=== PATIENT | female | born 1995 | race Hispanic/Latino ===

== ENCOUNTER → 2017-12-31 14:08 | Outpatient (CLI) | payer OTHER, MEDICAID, SELFPAY ==
[2017-12-31 15:04] LABS: Add Manual Diff / Slide Review NO; Basophils Percent Auto 0.3 % (0-2); Hematocrit 35.8 % (36-46); Hemoglobin 12.8 g/dL (12.0-16.0); Lymphocytes Percent Auto 17.2 % (25-40); Mean Corpuscular HGB Conc 35.6 % (30-36); Mean Corpuscular Hemoglobin 29.2 PG (26-34); Mean Corpuscular Volume 81.9 fL (80-100); Monocytes Percent Auto 5.1 % (3-14); Neutrophils Absolute Auto 7900 /uL (3000-5900); Neutrophils Percent Auto 76.4 % (50-75); Platelet Count 219 X10^3/uL (150-400); Red Blood Cell Count 4.37 X10^6/uL (4.0-5.2); Red Cell Distribution Width 13.7 % (11.6-14.8); White Blood Cell Count 10.4 X10^3/uL (4.5-11.0)
[2017-12-31 16:49] LABS: Hepatitis B Surface Antigen NEGATIVE s/c (NEGATIVE); Rubella Antibody IgG 10.5 IU/mL (>15)
[2017-12-31 17:07] LABS: Hep C Virus Ab w/Reflex Quant NEGATIVE s/c (NEGATIVE)
[2017-12-31 20:17] LABS: HIV 1 and 2 Antibody NEGATIVE (NEGATIVE)
[2018-01-04 14:03] LABS: HSV 2 IGG AB 9.14 index (< 0.90)
[2018-01-07 09:50] LABS: Rapid Plasma Reagin NON-REACTIVE
== END ==
PROVIDERS: Family Medicine; Visit Provider Obstetrics & Gynecology
DX: Z34.91 Encounter for supervision of normal pregnancy, unspecified, first trimester (principal)
CPT/HCPCS: 36415; 80055; 86695; 86696; 86703; 86787; 86803; 86850; 86900; 86901; 87086

== ENCOUNTER → 2018-03-07 11:51 | Outpatient (CLI) | payer OTHER, MEDICAID, SELFPAY ==
[2018-03-15 09:47] LABS: AFP, Serum 53.1 ng/mL; Calc Gestational Age 18.6; Cigarette Smoker N; Donated Egg NOT GIVEN; Donor Egg Age NOT GIVEN; Estriol, Free 1.26 ng/mL; Inhibin A, Dimeric 119 pg/mL; Maternal Ethnicity HISPANIC; Maternal Weight 202 lbs; Number of Fetuses 1; Previous Pregnancy Down Syndro NOT GIVEN; hCG, MoM 1.31; hCG, Serum 25.5 IU/mL
== END ==
PROVIDERS: PCP Family Medicine; Visit Provider Family Medicine
DX: Z34.92 Encounter for supervision of normal pregnancy, unspecified, second trimester (principal)
CPT/HCPCS: 36415; 82105; 82677; 84702; 86336

== ENCOUNTER → 2018-03-17 09:55 | Outpatient (CLI) | payer OTHER, MEDICAID, SELFPAY ==
--- NOTE | 2018-03-17 09:56 | DI.US.S_ITS ---
PROCEDURE: US OB >= 14 WEEKS FETUS INDICATIONS: ANATOMY OUTSIDE/PRIOR DATING DATA: Last menstrual period (LMP): Unknown. LMP-based estimated date of delivery (LADONNA): N./A.. First dating scan (date and location): 03/17/18. Estimated date of delivery (LADONNA) from first dating scan: 07/24/18. TECHNIQUE: Real-time scanning was performed of the fetus, with image documentation and biometric measurements. Endovaginal scanning: No COMPARISON: None. FINDINGS: General: A single living intrauterine gestation is present. Presentation: Vertex. Placenta: Placental position is posterior fundal, without previa. Amniotic fluid index: 13.1 cm, normal range is 5-24 cm. heart rate: 131 beats per minute. Maternal cervical canal: 4.0 cm long. Normal lower limit is 2.5 cm. biometrics: Biparietal diameter: 21 weeks 1 day Head circumference: 21 weeks 1 day Abdominal circumference: 21 weeks 1 day Femur length: 23 weeks Estimated gestational age from initial scan: not applicable. Composite gestational age from present scan: 21 weeks 4 days Measurement variability for biometric dating: +/- 7 days from 14 weeks to 15 weeks 6 days gestation, +/- 10 days from 16 weeks to 21 weeks 6 days gestation, +/- 2 weeks from 22 weeks to 27 weeks 6 days gestation, +/- 3 weeks for 28 weeks gestation or later. weight reference: 4500 g or EFW >90/95% is considered macrosomia or large for gestational age. EFW <10% is small for gestational age. EFW 5% or less is considered intra-uterine growth restriction. Anatomic survey: Neuro: Ventricles are non-dilated at less than 10 mm. Cisterna magna is normal at 3-11 mm. Cerebellum is normal in size and morphology. Nuchal skin fold: Normal at less than 6 mm between 14-21 weeks gestational age. Face: Suboptimally visualized. Spine: No evidence for spina bifida. Heart: Suboptimally visualized. Diaphragm: Diaphragm is intact. Stomach: Left-sided stomach is present. Kidneys: No hydronephrosis. Normal is less than 5 mm in 2nd trimester, less than 7 mm in 3rd trimester. Cord: 3-vessel cord has orthotopic insertion. Bladder: Normal in size. Extremities: All 4 extremities identified. IMPRESSION: 1. Single living IUP with mean composite age of 21 weeks 4 days. 2. face and heart are not well-visualized otherwise normal anatomy. Followup recommended. Dictated by: Moi KATZ Interpreted: Cezar Snowden MD on 03/17/2018 at 14:33 Approved by: Cezar Snowden M.D. on 03/17/2018 at 15:20
== END ==
PROVIDERS: PCP Family Medicine; Visit Provider Family Medicine
DX: Z34.02 Encounter for supervision of normal first pregnancy, second trimester (principal); Z36.89 Encounter for other specified antenatal screening; Z3A.21 21 weeks gestation of pregnancy
CPT/HCPCS: 76811

== ENCOUNTER → 2018-04-19 12:24 | Outpatient (CLI) | payer OTHER, MEDICAID, SELFPAY ==
--- NOTE | 2018-04-19 12:25 | DI.US.S_ITS ---
PROCEDURE: US OB FOLLOW UP INDICATIONS: Follow up anatomy scan from 03/17/18 OUTSIDE/PRIOR DATING DATA: Last menstrual period (LMP): Unknown. LMP-based estimated date of delivery (LADONNA): N./A.. First dating scan (date and location): 03/17/18. Estimated date of delivery (LADONNA) from first dating scan: 07/24/18.. TECHNIQUE: Real-time scanning was performed of the fetus, with image documentation. Endovaginal scanning: No COMPARISON: [facility], OB >= 14 WEEKS FETUS, 03/17/2018, 10:06. FINDINGS: A single living intrauterine gestation is present. Presentation: Vertex Placenta: Placental position is posterior, without previa. Amniotic fluid index: 16.2 cm, normal range is 5-24 cm. heart rate: 150 beats per minute. Maternal cervical canal: 4.4 cm long. Estimated gestational age from initial scan: 26 weeks 2 days Normal appearance of the face, 4 chamber heart and cardiac outflow tracts.. IMPRESSION: Normal face, 4 chamber heart and cardiac outflow tracts. Dictated by: Moi Mar [facility] Interpreted: Lorenzo Erazo MD on 04/19/2018 at 14:44 Approved by: Lorenzo Erazo M.D. on 04/19/2018 at 15:34
== END ==
PROVIDERS: PCP Family Medicine; Visit Provider Family Medicine
DX: Z36.89 Encounter for other specified antenatal screening (principal); Z3A.26 26 weeks gestation of pregnancy
CPT/HCPCS: 76816

== ENCOUNTER → 2018-05-27 12:22 | Outpatient (CLI) | payer OTHER, MEDICAID, SELFPAY ==
[2018-05-27 13:53] LABS: Add Manual Diff / Slide Review NO; Basophils Percent Auto 0.2 % (0-2); Eosinophils Percent Auto 0.7 % (2-4); Hematocrit 33.6 % (36-46); Hemoglobin 11.7 g/dL (12.0-16.0); Lymphocytes Percent Auto 13.8 % (25-40); Mean Corpuscular HGB Conc 34.9 % (30-36); Mean Corpuscular Hemoglobin 29.3 PG (26-34); Mean Corpuscular Volume 83.8 fL (80-100); Monocytes Percent Auto 3.2 % (3-14); Neutrophils Absolute Auto 8600 /uL (1500-7000); Neutrophils Percent Auto 82.1 % (50-75); Platelet Count 192 X10^3/uL (150-400); Red Blood Cell Count 4.01 X10^6/uL (4.0-5.2); Red Cell Distribution Width 14.1 % (11.6-14.8); White Blood Cell Count 10.5 X10^3/uL (4.5-11.0)
[2018-05-27 14:13] LABS: GTT (PREG) 1 Hour PP 50gm Dose 145 mg/dL (76-139)
== END ==
PROVIDERS: PCP Family Medicine; Visit Provider Family Medicine
DX: Z3A.27 27 weeks gestation of pregnancy (principal)
CPT/HCPCS: 36415; 82950; 85025

== ENCOUNTER → 2018-05-30 11:36 | Outpatient (CLI) | payer OTHER, MEDICAID, SELFPAY | PROVIDERS: PCP Family Medicine; Visit Provider Family Medicine | DX: O99.810 Abnormal glucose complicating pregnancy (principal); Z34.03 Encounter for supervision of normal first pregnancy, third trimester; O26.843 Uterine size-date discrepancy, third trimester ==

== ENCOUNTER → 2018-06-06 09:05 | Outpatient (CLI) | payer OTHER, MEDICAID, SELFPAY ==
[2018-06-06 12:30] LABS: Glucose Tol Interp,Gestational INTERPRETATION
[2018-06-06 13:45] LABS: Glucose 3 Hour Gest 158 mg/dL (76-140)
[2018-06-06 13:45] LABS: Glucose 2 Hour Gest 111 mg/dL (76-155)
[2018-06-06 14:37] LABS: Glucose 1 Hour Gest 171 mg/dL (76-180)
[2018-06-08 09:44] LABS: Glucose Fasting Gestational 84 mg/dL (76-95)
== END ==
PROVIDERS: PCP Family Medicine; Visit Provider Family Medicine
DX: O99.810 Abnormal glucose complicating pregnancy (principal); Z34.03 Encounter for supervision of normal first pregnancy, third trimester
CPT/HCPCS: 36415; 82951; 82952

== ENCOUNTER → 2018-06-22 09:07 | Outpatient (CLI) | payer OTHER, MEDICAID, SELFPAY ==
--- NOTE | 2018-06-22 09:11 | DI.US.S_ITS ---
PROCEDURE: US OB LIMITED INDICATIONS: size > dates, growth scan OUTSIDE/PRIOR DATING DATA: Last menstrual period (LMP): Unknown. LMP-based estimated date of delivery (LADONNA): N./A.. First dating scan (date and location): 03/17/18. Estimated date of delivery (LADONNA) from first dating scan: 07/24/18. TECHNIQUE: Real-time scanning was performed of the fetus, with image documentation and biometric measurements. Endovaginal scanning: No COMPARISON: [facility], OB FOLLOW UP, 04/19/2018, 13:11. FINDINGS: General: A single living intrauterine gestation is present. Presentation: Vertex. Placenta: Placental position is posterior, without previa. Amniotic fluid index: 18.2 cm, normal range is 5-24 cm. heart rate: 132 beats per minute. Maternal cervical canal: 4.1 cm long. Normal lower limit is 2.5 cm. biometrics: Biparietal diameter: 34 weeks 4 days Head circumference: 36 weeks 2 days Abdominal circumference: 36 weeks 4 days Femur length: 36 weeks Estimated gestational age from initial scan: 35 weeks 3 days Composite gestational age from present scan: 35 weeks 6 days Estimated weight and percentile: 2870 g; 70 percentile Measurement variability for biometric dating: +/- 7 days from 14 weeks to 15 weeks 6 days gestation, +/- 10 days from 16 weeks to 21 weeks 6 days gestation, +/- 2 weeks from 22 weeks to 27 weeks 6 days gestation, +/- 3 weeks for 28 weeks gestation or later. weight reference: 4500 g or EFW >90/95% is considered macrosomia or large for gestational age. EFW <10% is small for gestational age. EFW 5% or less is considered intra-uterine growth restriction. Other: Not applicable. IMPRESSION: Single living IUP redemonstrated and interval growth is normal. Dictated by: Moi Mar [facility] Interpreted: Micah Richmond MD on 06/22/2018 at 10:21 Approved by: Micah Richmond M.D. on 06/22/2018 at 11:26
== END ==
PROVIDERS: PCP Family Medicine; Visit Provider Family Medicine
DX: O26.843 Uterine size-date discrepancy, third trimester (principal); Z3A.35 35 weeks gestation of pregnancy
CPT/HCPCS: 76815

== ENCOUNTER → 2018-07-11 11:37 | Outpatient (CLI) | payer OTHER, MEDICAID, SELFPAY ==
[2018-07-11 12:45] LABS: Add Manual Diff / Slide Review NO; Basophils Absolute Auto 0 /uL (0-100); Basophils Percent Auto 0.3 % (0-2); Eosinophils Absolute Auto 100 /uL (0-450); Eosinophils Percent Auto 0.8 % (2-4); Hematocrit 33.8 % (36-46); Hemoglobin 11.5 g/dL (12.0-16.0); Lymphocytes Absolute Auto 1400 /uL (1100-4500); Lymphocytes Percent Auto 14.3 % (25-40); Mean Corpuscular HGB Conc 34.1 % (30-36); Mean Corpuscular Hemoglobin 28.5 PG (26-34); Mean Corpuscular Volume 83.6 fL (80-100); Monocytes Absolute Auto 400 /uL (0-900); Monocytes Percent Auto 4.1 % (3-14); Neutrophils Absolute Auto 7900 /uL (1500-7000); Neutrophils Percent Auto 80.5 % (50-75); Platelet Count 211 X10^3/uL (150-400); Red Blood Cell Count 4.05 X10^6/uL (4.0-5.2); Red Cell Distribution Width 14.1 % (11.6-14.8); White Blood Cell Count 9.8 X10^3/uL (4.5-11.0)
[2018-07-11 13:18] LABS: Appearance Urine UA CLEAR; Bilirubin Urine UA NEGATIVE (NEGATIVE); Color Urine UA YELLOW; Glucose Urine UA TRACE g/dL (Negative); Ketones Urine UA NEGATIVE (NEGATIVE); Leukocyte Esterase Urine UA 1+ (NEGATIVE); Nitrite Urine UA NEGATIVE (Negative); Occult Blood Urine UA TRACE-INTACT (Negative); Protein Urine UA NEGATIVE (Negative); pH Urine UA 6.5 (4.5-8.0)
[2018-07-11 13:30] LABS: Alanine Aminotransferase 30 IU/L (9-52); Albumin 3.1 g/dL (3.5-5.0); Albumin Globulin Ratio 1.1 (1.0-2.8); Alkaline Phosphatase 227 U/L (38-126); Aspartate Aminotransferase 17 IU/L (14-36); Bilirubin Total 0.3 mg/dL (0.2-1.3); Blood Urea Nitrogen 6 mg/dL (7-17); Calcium 8.7 mg/dL (8.4-10.2); Carbon Dioxide 21 mmol/L (22-32); Chloride 106 mmol/L (98-107); Estimated Glomerular Filt Rate > 60.0 mL/min (>60); Globulin 2.9 g/dL (1.7-4.1); Glucose 131 mg/dL (70-100); HEMOLYSIS < 15 (0-50); Sodium 136 mmol/L (137-145)
[2018-07-11 13:37] LABS: Amorphous Sediment Urine 1+; Bacteria Urine Occasional (0-1); RBC Urine 0-1/HPF (0-5/HPF); Squamous Epithelial Cell Urine 0-1 /HPF; WBC Urine 1-5/HPF (0-5/HPF)
[2018-07-11 13:38] LABS: Culture Indicated Urine Specimen Cultured; Mucus Urine 1+ (Negative)
[2018-07-11 16:56] LABS: Creatinine Urine Random 96.9 mg/dL; Protein (Total) Urine Random 6 mg/dL (0-12); Protein Creatinine Ratio Urine 0.06 GRAM/24H
[2018-07-12 09:40] LABS: Strep Grp B PCR NEG for Grp B Strep
== END ==
PROVIDERS: PCP Family Medicine; Visit Provider Family Medicine
DX: O16.3 Unspecified maternal hypertension, third trimester (principal); Z3A.36 36 weeks gestation of pregnancy
CPT/HCPCS: 36415; 80053; 81001; 82570; 84156; 85025; 87077; 87086; 87653

== ENCOUNTER 2018-07-14 22:03 | Outpatient (CLI) | payer OTHER, MEDICAID, SELFPAY ==
[2018-07-14 23:12] LABS: Add Manual Diff / Slide Review NO; Basophils Absolute Auto 0 /uL (0-100); Basophils Percent Auto 0.4 % (0-2); Eosinophils Absolute Auto 100 /uL (0-450); Eosinophils Percent Auto 0.8 % (2-4); Hematocrit 30.9 % (36-46); Hemoglobin 10.8 g/dL (12.0-16.0); Lymphocytes Absolute Auto 1700 /uL (1100-4500); Lymphocytes Percent Auto 17.2 % (25-40); Mean Corpuscular HGB Conc 34.9 % (30-36); Mean Corpuscular Hemoglobin 28.5 PG (26-34); Mean Corpuscular Volume 81.8 fL (80-100); Monocytes Absolute Auto 600 /uL (0-900); Monocytes Percent Auto 6.3 % (3-14); Neutrophils Absolute Auto 7600 /uL (1500-7000); Neutrophils Percent Auto 75.3 % (50-75); Platelet Count 193 X10^3/uL (150-400); Red Blood Cell Count 3.78 X10^6/uL (4.0-5.2); Red Cell Distribution Width 14.3 % (11.6-14.8); White Blood Cell Count 10.1 X10^3/uL (4.5-11.0)
[2018-07-14 23:13] LABS: Aspartate Aminotransferase 15 IU/L (14-36); BUN Creatinine Ratio 16.7 (6-22); Blood Urea Nitrogen 10 mg/dL (7-17); Estimated Glomerular Filt Rate > 60.0 mL/min (>60); Uric Acid 4.1 mg/dL (2.5-6.2)
[2018-07-14 23:55] LABS: Appearance Urine UA CLEAR; Bilirubin Urine UA NEGATIVE (NEGATIVE); Color Urine UA YELLOW; Glucose Urine UA NEGATIVE (Negative); Ketones Urine UA NEGATIVE (NEGATIVE); Leukocyte Esterase Urine UA 1+ (NEGATIVE); Nitrite Urine UA NEGATIVE (Negative); Occult Blood Urine UA TRACE-LYSED (Negative); Protein Urine UA 1+ (Negative); Urobilinogen Urine UA 0.2 E.U./dL (0.2)
[2018-07-15 00:11] LABS: Bacteria Urine Few (2-10); Culture Indicated Urine Specimen Cultured; RBC Urine 1-5/HPF (0-5/HPF); Squamous Epithelial Cell Urine 1-5 /HPF; WBC Urine 1-5/HPF (0-5/HPF)
--- NOTE | 2018-07-15 14:11 | PM.OBTRLD ---
Visit Information Visit Information Date of evaluation: 07/15/18 Primary OB Provider: Tania García On-call OB Provider: Anitra Schneider Reason for Evaluation: Yes other Comments/Additional reasons for admission: Patient complains of high blood pressure on home monitor Exam Vital Signs (past 8 hours): Initial blood pressure was 189/100. Very shortly after her blood pressure was 118/87 followed by 121/70. Objective Labs Result Diagrams: 07/14/18 22:48 07/14/18 22:48 Labs: Laboratory Results - last 24 hr 07/14/18 07/14/18 07/14/18 22:30 22:48 22:48 WBC 10.1 RBC 3.78 L Hgb 10.8 L Hct 30.9 L MCV 81.8 MCH 28.5 MCHC 34.9 RDW 14.3 Plt Count 193 Neut % (Auto) 75.3 H Lymph % (Auto) 17.2 L [place] % (Auto) 6.3 Eos % (Auto) 0.8 L Baso % (Auto) 0.4 Neut # (Auto) 7600 H Lymph # (Auto) 1700 [place] # (Auto) 600 Eos # (Auto) 100 Baso # (Auto) 0 BUN 10 Creatinine 0.60 Estimated GFR > 60.0 BUN/Creatinine Ratio 16.7 Uric Acid 4.1 AST 15 Urine Color Yellow Urine Appearance Clear Urine pH 7.0 Ur Specific [place] 1.020 Urine Protein 1+ H Urine Glucose (UA) Negative Urine Ketones Negative Urine Occult Blood Trace-lysed Urine Nitrate Negative Urine Bilirubin Negative Urine Urobilinogen 0.2 Ur Leukocyte Esterase 1+ H Urine RBC 1-5/hpf Urine WBC 1-5/hpf Ur Squamous Epith Cells 1-5 /hpf Urine Bacteria Few (2-10) H Ur Culture Indicated? Specimen cultured Evaluation Evaluation Baseline heart rate: 145 Variability: Moderate (11-25) monitor accelerations: Present monitor decelerations: Absent Contraction Frequency (minutes): 0 Laboratory results: Laboratory Tests 07/14/18 07/14/18 07/14/18 22:30 22:48 22:48 WBC 10.1 RBC 3.78 L Hgb 10.8 L Hct 30.9 L MCV 81.8 MCH 28.5 MCHC 34.9 RDW 14.3 Plt Count 193 Neut % (Auto) 75.3 H Lymph % (Auto) 17.2 L [place] % (Auto) 6.3 Eos % (Auto) 0.8 L Baso % (Auto) 0.4 Neut # (Auto) 7600 H Lymph # (Auto) 1700 [place] # (Auto) 600 Eos # (Auto) 100 Baso # (Auto) 0 BUN 10 Creatinine 0.60 Estimated GFR > 60.0 BUN/Creatinine Ratio 16.7 Uric Acid 4.1 AST 15 Urine Color Yellow Urine Appearance Clear Urine pH 7.0 Ur Specific [place] 1.020 Urine Protein 1+ H Urine Glucose (UA) Negative Urine Ketones Negative Urine Occult Blood Trace-lysed Urine Nitrate Negative Urine Bilirubin Negative Urine Urobilinogen 0.2 Ur Leukocyte Esterase 1+ H Urine RBC 1-5/hpf Urine WBC 1-5/hpf Ur Squamous Epith Cells 1-5 /hpf Urine Bacteria Few (2-10) H Ur Culture Indicated? Specimen cultured Diagnosis, Plan/Disposition Final Diagnosis (1) Hypertension affecting in third trimester: Current Visit: No Status: Acute Plan/Disposition Plan: Patient with hypertension that resolved quickly with rest. PIH labs were normal. Patient was discharged home on rest. She is to follow up on her regularly scheduled OB appointment but return if she develops any symptoms of preeclampsia. She will continue to monitor blood pressures at home.
== END 2018-07-15 00:11 | disposition home or self-care (01) ==
LOC: OB 07-15 14:13
PROVIDERS: PCP Family Medicine; Visit Provider Specialist
DX: Z34.03 Encounter for supervision of normal first pregnancy, third trimester (principal); Z3A.37 37 weeks gestation of pregnancy; R03.0 Elevated blood-pressure reading, without diagnosis of hypertension
CPT/HCPCS: 36415; 59025; 59050; 81001; 84450; 84550; 85025; 87086; G0378; G0379

== ENCOUNTER 2018-07-18 19:04 | Inpatient (IN) | payer OTHER, MEDICAID, SELFPAY ==
[2018-07-18 19:45] LABS: Add Manual Diff / Slide Review NO; Basophils Absolute Auto 100 /uL (0-100); Basophils Percent Auto 0.6 % (0-2); Eosinophils Absolute Auto 100 /uL (0-450); Eosinophils Percent Auto 0.9 % (2-4); Hematocrit 35.1 % (36-46); Hemoglobin 11.7 g/dL (12.0-16.0); Lymphocytes Absolute Auto 1600 /uL (1100-4500); Mean Corpuscular HGB Conc 33.4 % (30-36); Mean Corpuscular Hemoglobin 27.7 PG (26-34); Mean Corpuscular Volume 82.8 fL (80-100); Monocytes Absolute Auto 300 /uL (0-900); Neutrophils Absolute Auto 9000 /uL (1500-7000); Neutrophils Percent Auto 81.5 % (50-75); Platelet Count 224 X10^3/uL (150-400); Red Blood Cell Count 4.24 X10^6/uL (4.0-5.2); Red Cell Distribution Width 14.4 % (11.6-14.8); White Blood Cell Count 11.1 X10^3/uL (4.5-11.0)
[2018-07-18 19:52] LABS: Alanine Aminotransferase 28 IU/L (9-52); Albumin 3.7 g/dL (3.5-5.0); Albumin Globulin Ratio 1.1 (1.0-2.8); Alkaline Phosphatase 237 U/L (38-126); Aspartate Aminotransferase 26 IU/L (14-36); Bilirubin Total 0.6 mg/dL (0.2-1.3); Blood Urea Nitrogen 9 mg/dL (7-17); Calcium 9.1 mg/dL (8.4-10.2); Carbon Dioxide 23 mmol/L (22-32); Chloride 106 mmol/L (98-107); Estimated Glomerular Filt Rate > 60.0 mL/min (>60); Globulin 3.5 g/dL (1.7-4.1); Glucose 142 mg/dL (70-100); HEMOLYSIS 32 (0-50); Potassium 4.4 mmol/L (3.4-5.1); Sodium 138 mmol/L (137-145); Total Protein 7.2 g/dL (6.3-8.2)
[2018-07-18] MEDS: miSOPROStol 25 MCG TABLET VAG (20:02)
[2018-07-18 20:31] VITALS: BP 134/78
[2018-07-18 22:38] LABS: Creatinine Urine Random 94.8 mg/dL; Protein (Total) Urine Random 74 mg/dL (0-12); Protein Creatinine Ratio Urine 0.78 GRAM/24H
[2018-07-19] MEDS: miSOPROStol 25 MCG TABLET VAG (00:30)
[2018-07-19] MEDS: OXYTOCIN PREMIX 30 UNIT/500 ML PLAST..BAG IV (08:10)
[2018-07-19] MEDS: LACTATED RINGERS 1,000 ML 100 ML IV ×2 (08:10→23:52)
--- NOTE | 2018-07-19 08:16 | P.HPOB_ITS ---
OB HPI Date/Time Date of admission: 07/18/18 Date Patient Seen: 07/19/18 Time Patient Seen: 08:00 History of Present Condition Chief complaint: : 1 Para: 0 Estimated Date of Delivery: 08/04/18 Estimated Gestational Age (weeks): 37w5d Narrative: Lizbet Chakraborty is a 23 year old at 37w5d who presented for IOL due to gestational hypertension. Pt denies any headaches, vision changes, RUQ pain, acute worsening of swelling. She has been overall feeling well. She has been checking her BPs regularly at home, and they have been consistently elevated > 140 systolic for the past week. The pt denies any vaginal bleeding or LOF. She has been feeling her baby move regularly. Indications Indication for induction OB: other (gestational hypertension now pre-eclampsia) History of Present care: limited care, initiated at week # (10) and number of visits (9) Dating criteria: based on 1st trimester US only Ultrasounds: normal 1st trimester US and normal mid trimester US Obstetrical complications: gestational hypertension Medical complications: none Preadmission Labs Blood type: O (+) positive -: Antibody screen: negative, GBS status: negative, HBsAG: negative, HIV: negative, HSV 1: positive, HSV 2: positive and RPR/VDLR: negative -: Rubella: immune and Varicella: immune HCT: 33.6 HCAB: negative 1 hr GTT: 145 3 hr GTT: 1 hr (171), 2 hr (111) and 3 hr (158) Evaluation Evaluation Baseline heart rate: 140 Variability: Moderate (11-25) monitor accelerations: Present monitor decelerations: Absent Contraction Frequency (minutes): 5 Uterine Contraction Intensity: Mild Category of Tracing: I Cervical dilation (cm): 2 Cervical effacement (%): 60 station: -2 Laboratory results: Laboratory Tests 07/18/18 07/18/18 07/18/18 19:30 19:30 19:30 WBC 11.1 H RBC 4.24 Hgb 11.7 L Hct 35.1 L MCV 82.8 MCH 27.7 MCHC 33.4 RDW 14.4 Plt Count 224 Neut % (Auto) 81.5 H Lymph % (Auto) 14.0 L [place] % (Auto) 3.0 Eos % (Auto) 0.9 L Baso % (Auto) 0.6 Neut # (Auto) 9000 H Lymph # (Auto) 1600 [place] # (Auto) 300 Eos # (Auto) 100 Baso # (Auto) 100 Sodium 138 Potassium 4.4 Chloride 106 Carbon Dioxide 23 BUN 9 Creatinine 0.50 L Estimated GFR > 60.0 BUN/Creatinine Ratio 18.0 Glucose 142 H Calcium 9.1 Total Bilirubin 0.6 AST 26 ALT 28 Alkaline Phosphatase 237 H Total Protein 7.2 Albumin 3.7 Globulin 3.5 Albumin/Globulin Ratio 1.1 U Random Total Protein Urine Creatinine Protein/Creatinin Ratio Blood Type O Positive Antibody Screen Negative 07/18/18 21:15 WBC RBC Hgb Hct MCV MCH MCHC RDW Plt Count Neut % (Auto) Lymph % (Auto) [place] % (Auto) Eos % (Auto) Baso % (Auto) Neut # (Auto) Lymph # (Auto) [place] # (Auto) Eos # (Auto) Baso # (Auto) Sodium Potassium Chloride Carbon Dioxide BUN Creatinine Estimated GFR BUN/Creatinine Ratio Glucose Calcium Total Bilirubin AST ALT Alkaline Phosphatase Total Protein Albumin Globulin Albumin/Globulin Ratio U Random Total Protein 74 H Urine Creatinine 94.8 Protein/Creatinin Ratio 0.78 Blood Type Antibody Screen [facility] Social History Smoking Status: Never smoker Social History Smoking Status: Never smoker Meds Home Medications Medication Instructions Recorded Confirmed Type No Known Home Medications 07/14/18 07/14/18 History Allergies Allergy/AdvReac Type Severity Reaction Status Date / Time No Known Drug Allergies Allergy Verified 07/14/18 22:20 Exam Narrative Exam Narrative: Gen: NAD, laying comfortably in bed, appears well CV: RRR, no murmurs Resp: clear to auscultation bilaterally Abd: gravid, soft, nondistended Ext: trace edema bilaterally Objective Labs Result Diagrams: 07/18/18 19:30 07/18/18 19:30 Labs: Laboratory Results - last 24 hr 07/18/18 07/18/18 07/18/18 19:30 19:30 19:30 WBC 11.1 H RBC 4.24 Hgb 11.7 L Hct 35.1 L MCV 82.8 MCH 27.7 MCHC 33.4 RDW 14.4 Plt Count 224 Neut % (Auto) 81.5 H Lymph % (Auto) 14.0 L [place] % (Auto) 3.0 Eos % (Auto) 0.9 L Baso % (Auto) 0.6 Neut # (Auto) 9000 H Lymph # (Auto) 1600 [place] # (Auto) 300 Eos # (Auto) 100 Baso # (Auto) 100 Sodium 138 Potassium 4.4 Chloride 106 Carbon Dioxide 23 BUN 9 Creatinine 0.50 L Estimated GFR > 60.0 BUN/Creatinine Ratio 18.0 Glucose 142 H Calcium 9.1 Total Bilirubin 0.6 AST 26 ALT 28 Alkaline Phosphatase 237 H Total Protein 7.2 Albumin 3.7 Globulin 3.5 Albumin/Globulin Ratio 1.1 U Random Total Protein Urine Creatinine Protein/Creatinin Ratio Blood Type O Positive Antibody Screen Negative 07/18/18 21:15 WBC RBC Hgb Hct MCV MCH MCHC RDW Plt Count Neut % (Auto) Lymph % (Auto) [place] % (Auto) Eos % (Auto) Baso % (Auto) Neut # (Auto) Lymph # (Auto) [place] # (Auto) Eos # (Auto) Baso # (Auto) Sodium Potassium Chloride Carbon Dioxide BUN Creatinine Estimated GFR BUN/Creatinine Ratio Glucose Calcium Total Bilirubin AST ALT Alkaline Phosphatase Total Protein Albumin Globulin Albumin/Globulin Ratio U Random Total Protein 74 H Urine Creatinine 94.8 Protein/Creatinin Ratio 0.78 Blood Type Antibody Screen Assessment and Plan (1) 37 weeks gestation of : Current visit: Yes Status: Acute (2) Hypertension affecting in third trimester: Current visit: Yes Status: Acute (3) Preeclampsia: Current visit: Yes Status: Acute Plan: Plan: 23yo at 37w4d here for IOL due to gestational hypertension, with lab work at admission showing elevated Pr/Cr, therefore pt meeting criteria for pre- eclampsia without severe features. No evidence of HELLP at this time. GBS negative, Rh positive. - Expectant management, anticipate - Received 2 doses cytotec overnight, now with mild contractions. [place] score 7. Will start pitocin and titrate as tolerated. - Monitor BPs closely, if elevating to severe range will start Magnesium and give IV antihypertensives - GBS negative, no prophylaxis indicated - FHT reassuring - Epidural for pain control if desired, pt would like to try and use natural methods for as long as possible. Encouraged ambulation.
--- NOTE | 2018-07-19 13:04 | PM.OBPNLAB ---
Date/Time Date Patient Seen: 07/19/18 Time Patient Seen: 13:00 Pain Control Pain control: tolerating well Pelvic Exam Dilation (cm): 3 Effacement (%): 60 station: -2 Amniotic membrane status: Ruptured Comments: After informed consent, AROM performed with production of clear fluid. Contractions Monitor mode: External Pitocin rate (mU/min): 12 Contraction frequency (min): 2 Contraction pattern: Regular Contraction intensity: Strong/Firm Status status: Category l Heart Rate Baseline: 140 Monitor Accelerations: Present Monitor Decelerations: Absent Monitor Variability: Moderate Assessment and Plan Comments: 23yo at 37w5d here for IOL due to gestational hypertension, with lab work at admission showing elevated Pr/Cr, therefore pt meeting criteria for pre-eclampsia without severe features. No evidence of HELLP at this time. GBS negative, Rh positive. AROM performed with clear fluid, contractions now much more painful. BP now elevated to severe range, pt remains asymptomatic. Pt is very uncomfortable with regular contractions, likely contributing to BP elevation. - Expectant management, anticipate - Received 2 doses cytotec overnight. Continue pitocin, titrate as tolerated - 10mg IV Labetalol now - Repeat BP in 10 minutes, if remains elevated 20mg IV Labetalol - Epidural for pain control now. If BPs remain elevated after epidural, will initiate MgSO4 - GBS negative, no prophylaxis indicated - FHT reassuring
[2018-07-19] MEDS: LABETALOL 20 MG/4 ML SYRINGE 10 MG IV (13:06)
--- NOTE | 2018-07-19 17:26 | PM.OBPNLAB ---
Date/Time Date Patient Seen: 07/19/18 Time Patient Seen: 17:00 Pain Control Pain control: epidural Pelvic Exam Dilation (cm): 4 Effacement (%): 90 station: -1 Amniotic membrane status: Ruptured Contractions Monitor mode: External Pitocin rate (mU/min): 16 Contraction frequency (min): 2 Contraction pattern: Regular Contraction intensity: Strong/Firm Intrauterine tone measurement: 170 Status status: Category l Heart Rate Baseline: 140 Monitor Accelerations: Present Monitor Decelerations: Absent Monitor Variability: Moderate Assessment and Plan Comments: 23yo at 37w5d here for IOL due to gestational hypertension, with lab work at admission showing elevated Pr/Cr, therefore pt meeting criteria for pre-eclampsia without severe features. No evidence of HELLP at admission. GBS negative, Rh positive. AROM performed with clear fluid. BP previously to severe range requiring IV Labetalol 10mg x1, now in acceptable range after epidural in place. IUPC placed due to limited cervical change and inability to titrate up pitocin further with contraction pattern. - Expectant management, anticipate - Received 2 doses cytotec overnight. Continue pitocin, titrate as tolerated to at least 200MVUs - Epidural for pain control - Continue to monitor BP closely - GBS negative, no prophylaxis indicated - FHT reassuring
[2018-07-20 02:27] VITALS: TEMP 38.2
[2018-07-20] MEDS: ACETAMINOPHEN 325 MG TABLET 650 MG PO (02:27)
[2018-07-20] MEDS: AMPICILLIN 2,000 MG in SODIUM CHLORIDE 0.9% 100 ML 200 ML IV ×4 (02:41→20:46)
[2018-07-20] MEDS: SODIUM CHLORIDE 0.9% IV (03:15)
[2018-07-20] MEDS: GENTAMICIN IV (03:15)
--- NOTE | 2018-07-20 07:46 | PM.OBPNLAB ---
Date/Time Date Patient Seen: 07/20/18 Time Patient Seen: 07:15 Pain Control Pain control: epidural Pelvic Exam Dilation (cm): 10 Effacement (%): 100 station: +1 Amniotic membrane status: Ruptured Contractions Monitor mode: External Pitocin rate (mU/min): 9 Contraction frequency (min): 5 Contraction pattern: Regular Contraction intensity: Strong/Firm Status status: Category l Heart Rate Baseline: 155 Monitor Accelerations: Present Monitor Decelerations: Absent Monitor Variability: Moderate Assessment and Plan Comments: 23yo at 37w5d here for IOL due to gestational hypertension, with lab work at admission showing elevated Pr/Cr, therefore pt meeting criteria for pre-eclampsia without severe features. No evidence of HELLP at admission. GBS negative, Rh positive. AROM performed with clear fluid. BP previously to severe range requiring IV Labetalol 10mg x1, now remains in acceptable range after epidural in place. IUPC placed due to limited cervical change and inability to titrate up pitocin further with contraction pattern. Pt slowly progressed overnight. Did develop tachycardia and maternal fever, with antibiotics started for chorioamnionitis. Now with complete cervical dilation. - Expectant management, anticipate - Received 2 doses cytotec initial night. Continue pitocin, titrate as tolerated. IUPC stopped functioning properly and was removed. - Epidural for pain control - Continue to monitor BP closely - Ampicillin and Gentamicin for chorio - FHT reassuring
--- NOTE | 2018-07-20 14:02 | PATH_ITS ---
[facility] Accession Number: [id number] . 01 Material submitted: . PLACENTA AFTER DELIVERY . 02 Diagnosis: Placenta After Delivery: Placenta parenchyma. Weight 493 grams. Chorionic villi consistent with mature placenta. Moderate inter- and intravillous fibrin is present. No villitis identified. . Umbilical cord Length 67.2 cm. Inserted 5.5 cm from the placental disc margin. Three vessels present. Funisitis present. . Membranes Ruptured 8.5 cm from the placental disc margin. Chorioamnionitis present. MRV/07/22/2018 . 02 Electronically signed: . Gabrielle Estes MD, Pathologist NPI- [id number] . 01 Gross description: . Received in formalin, labeled placenta, is an intact placenta, which includes the placental disc (493 grams, 20.3 x 14.5 x 3.3 cm), umbilical cord (length-67.2 cm, diameter-up to 1.5 x 1.1 cm), and membranes. The membranes are ruptured at 8.5 cm from the edge of the placenta and are semi-translucent. The umbilical cord is attached 5.5 cm from the edge of the placenta and contains three vessels. The surface is smooth and shiny with no evidence of meconium identified. The maternal surface is red-brown with normal cotyledon formation. The placental body is spongy with no nodules, masses or lesions identified. Section code: (A1) edge of placenta with membranes; (A2) umbilical cord, sales promotion representative serial section; (A3-A4, A5-A6) placental body, two bisected full thickness sections. ([id number]) /[facility] . 02 Pathologist provided ICD-10: O41.1039 . 02 CPT . 160326 Performed at: 01 [facility] [address] [place] [address], [place], [place] [id number] MD Braden James MD Phone: [phone] Performed at: [facility] [address] [place], [place] [id number] MD Argentina Miller MD Phone: [phone]
--- NOTE | 2018-07-20 14:04 | PM.OBPRVD ---
Delivery date: 07/20/18 Intrapartal events: Prolonged 2nd Stage > 2.5 hours, Mild Preeclampsia, Extended Tachycardia and Chorioamnionitis Cervical ripening method: per misoprostal protocol Induction method: per pitocin protocol Delivery augmentation: rupture of membranes Delivery monitor: external FHT Route of delivery: Indication for instrumentation: nonreassuring FHR tracing ( tachycardia) Episiotomy description: None L&D Laceration Description: Vaginal - 1st Degree Estimated blood loss (mL): 250 Anesthesia type: Epidural Narrative: PROCEDURE: at 37w4d presented for IOL for gestational hypertension and was admitted to Labor and Delivery. Admission labs showed and elevated Pr/Cr, and the pt was diagnosed with pre-eclampsia. The pt received cytotec for initial induction, followed by pitocin. AROM was performed at 11:35am on 07/19/18. She received an epidural for pain control. The patient progressed through the 1st stage over 4.5 hours. tachycardia developed, in addition to maternal fever, and the pt was started on Ampicillin and Gentamicin for chorioamnionitis. She received a total of 2 doses of each prior to delivery. The patient progressed through the 2nd stage over 3hrs 44min. FHT were category II throughout the second stage due to tachycardia. Once the pt was , there were recurrent variable decelerations. Due to for at least 3 minutes with little additional maternal effort for delivery due to exhaustion, in addition to acutely worsening tachycardia to the 210s, a vacuum was applied. Maternal pelvis was noted to be adequate. Vertex presentation in the JAQUELINE position and +4 station. Moulding present, Caput present Vacuum cup of the Kiwi OmniCup applied to the flexion point without difficulty and during contractions, pressure applied between 400-600 mmHg as indicated in the green zone of the pressure gauge. Infant delivered after 1 pulls with 0 pop-offs over an intact perineum. Total duration of application of the vacuum was <1 minutes. Due to significant labial and vaginal tissue, when the pts head was fully delivered it was still not possible to visualize the mouth and nose. A loose nuchal cord x1 was then reduced at the perineum. The anterior shoulder then did not easily deliver, and the pt was determined to have an anterior shoulder dystocia. Jones and suprabupic pressure were attempted without any release of the anterior shoulder. An attempt was made to deliver the posterior arm, however due to the pts deep vaginal tissue, it could not be delivered. Woodscrew and Rodriguez were then completed, with the anterior shoulder then delivering and the rest of the body without difficulty. Delivery time 11:07am. The cord was promptly clamped and cut, and the baby taken to the warmer for resuscitation. APGARs 0/0/1. Small vaginal and perineal lacerations were noted that did not require repair. Shoulder dystocia present: yes Mode of delivery : spontaneous operative vaginal delivery Time head delivered: 11:05 Time rest of body delivered: 11:07 No fundal pressure applied Standard traction on vertex applied. Maneuvers performed: Jones, Suprapubic pressure, Delivery of posterior arm, Woodscrew, Rodriguez Episiotomy: None Lacerations: Vaginal 1st degree not requiring repair Cord gases sent: None - called in on-call OB provider due to delivering provider assisting with resuscitation. Unable to collect cord gases at the time of their arrival. Status of before leaving delivery room: scores: 1 min - 0 5 min - 0 10 min - 1 Moving all extremities: Prior to transfer, yes PREPROCEDURE DIAGNOSIS: Intrauterine at 37w4d Pre-eclampsia without severe features Chorioamnionitis GBS negative RH positive POSTPROCEDURE DIAGNOSIS: Intrauterine at 37w6d, delivered Same as preprocedure Shoulder dystocia Terminal meconium PROCEDURE: Vacuum-assisted vaginal delivery ROM APPEARANCE: Clear BABY A DELIVERY TIME: 11:07 BABY A SEX: Female BABY A WEIGHT: Approximately 3kg BABY A NUCHAL CORD: x1 reduced at the perineum BABY A CORD GASES OBTAINED: No - provider involved in resuscitation and unable to obtain cord gases PLACENTA DELIVERY TIME: 11:15 PLACENTA APPEARANCE: Intact [place] Baby 1: Infant gender: Female Presentation: vertex position: Right Occiput Anterior Placenta delivery description: Spontaneous cord vessel description: 3 Vessels score (1 min): 0 score (5 min): 0 score (10 min): 1 Narrative: Baby required resuscitation with PPV, chest compressions, intubation, and epinephrine. Was ultimately transferred to [facility] for additional care. At the time of transfer, was breathing spontaneously with ET tube in place and HR in the 150s. Plan for aftercare: Continue to monitor BPs closely Continue Ampicillin and Gentamicin until 24hrs without fever support with pumping Normal care
[2018-07-20 14:09] VITALS: BP 160/93; PULSE 90
[2018-07-20] MEDS: LABETALOL 20 MG/4 ML SYRINGE 10 MG IV (14:09)
[2018-07-20 14:31] LABS: Hematocrit 34.3 % (36-46); Hemoglobin 11.7 g/dL (12.0-16.0); Mean Corpuscular Hemoglobin 27.9 PG (26-34); Platelet Count 195 X10^3/uL (150-400); Red Blood Cell Count 4.18 X10^6/uL (4.0-5.2); Red Cell Distribution Width 14.7 % (11.6-14.8); White Blood Cell Count 29.6 X10^3/uL (4.5-11.0)
[2018-07-20 14:33] VITALS: BP 190/93
[2018-07-20] MEDS: LABETALOL 20 MG/4 ML SYRINGE IV (14:33)
[2018-07-20 14:35] LABS: Add Manual Diff / Slide Review YES
[2018-07-20 14:40] LABS: Alanine Aminotransferase 24 IU/L (9-52); Albumin 3.1 g/dL (3.5-5.0); Alkaline Phosphatase 211 U/L (38-126); Aspartate Aminotransferase 33 IU/L (14-36); BUN Creatinine Ratio 11.4 (6-22); Bilirubin Total 1.3 mg/dL (0.2-1.3); Blood Urea Nitrogen 16 mg/dL (7-17); Calcium 8.7 mg/dL (8.4-10.2); Carbon Dioxide 20 mmol/L (22-32); Chloride 105 mmol/L (98-107); Estimated Glomerular Filt Rate 47.5 mL/min (>60); Globulin 3.1 g/dL (1.7-4.1); Glucose 150 mg/dL (70-100); HEMOLYSIS < 15 (0-50); Sodium 134 mmol/L (137-145); Total Protein 6.2 g/dL (6.3-8.2)
[2018-07-20] MEDS: DEXTROSE 5% IV (14:47)
[2018-07-20] MEDS: MAGNESIUM SULFATE IV (14:47)
[2018-07-20] MEDS: WATER IV (14:47)
[2018-07-20 15:05] LABS: Neutrophils Absolute Manual 27824 /uL (3000-5900); Total Cells Counted 100
[2018-07-20 15:06] LABS: Polychromasia 2+
--- NOTE | 2018-07-20 15:28 | P.PNOB_ITS ---
Subjective - OB Narrative: Pt is currently very fatigued, and coping well with the resuscitation required for her baby. She denies any headaches, SOB, vision changes, RUQ abdominal pain. Exam Vital Signs (past 8 hours): - 07/20/18 14:09 07/20/18 14:33 Pulse Rate 90 Blood Pressure 160/93 H 190/93 H Narrative Exam Narrative: Gen: NAD, laying in bed, eyes barely open CV: RRR, no murmurs Resp: clear to auscultation bilaterally, no crackles Abd: soft, appropriately tender, fundus firm and below the umbilicus Ext: 1+ edema bilaterally Objective Labs Result Diagrams: 07/20/18 14:10 07/20/18 14:10 Labs: Laboratory Results - last 24 hr 07/20/18 07/20/18 14:10 14:10 WBC 29.6 H D RBC 4.18 Hgb 11.7 L Hct 34.3 L MCV 82.0 MCH 27.9 MCHC 34.0 RDW 14.7 Plt Count 195 Neut % (Auto) Not Reportable Lymph % (Auto) Not Reportable [place] % (Auto) Not Reportable Eos % (Auto) Not Reportable Baso % (Auto) Not Reportable Lymph # (Auto) Not Reportable [place] # (Auto) Not Reportable Baso # (Auto) Not Reportable Total Counted 100 Seg Neutrophils % 84.0 H Band Neutrophils % 10.0 H Lymphocytes % (Manual) 3.0 L Monocytes % (Manual) 3.0 Neutrophils # (Manual) 78942 H RBC Morphology See below Polychromasia 2+ H Sodium 134 L Potassium 4.0 Chloride 105 Carbon Dioxide 20 L BUN 16 Creatinine 1.40 H Estimated GFR 47.5 L BUN/Creatinine Ratio 11.4 Glucose 150 H Calcium 8.7 Total Bilirubin 1.3 AST 33 ALT 24 Alkaline Phosphatase 211 H Total Protein 6.2 L Albumin 3.1 L Globulin 3.1 Albumin/Globulin Ratio 1.0 Assessment & Plan (1) 37 weeks gestation of : Status: Acute Current Visit: Yes (2) Hypertension affecting in third trimester: Status: Acute Current Visit: Yes (3) Severe preeclampsia: Status: Acute Current Visit: Yes (4) Chorioamnionitis: Status: Acute Current Visit: Yes Plan Comments: 23yo PPD #0 s/p vacuum-assisted with shoulder dystocia. Pt with chorioamnionitis while in labor. Also with preeclampsia, now with BPs in the severe range. No evidence of HELLP. Creatinine is elevated to 1.4, but pt is making urine. - Repeat BMP in the AM - S/P IV Labetalol 10mg and then 20mg, now with BPs in acceptable range - Continue to monitor for diuresis - Start MgSO4 6g bolus followed by 2g/hr for 24hrs - Monitor BPs closely, may need to start PO Labetalol - Continue Ampicillin and Gentamicin for 24hrs Time Spent With Patient Total time spent is greater than 50% in coordination of care (as documented) at patient's floor/unit and/or counseling patient: less than 15 minutes
[2018-07-20] MEDS: MAGNESIUM SULFATE 20 GM/500 ML IV.SOLN IV (15:54)
[2018-07-20] MEDS: LABETALOL 100 MG TABLET PO ×2 (16:39→20:46)
[2018-07-20] MEDS: GENTAMICIN 110 MG in SODIUM CHLORIDE 0.9% 100 ML 102.75 ML IV (16:49)
[2018-07-20] MEDS: IBUPROFEN 600 MG TABLET PO (20:05)
[2018-07-20 21:55] LABS: Magnesium 5.4 mg/dL (1.6-2.3)
[2018-07-21] VITALS (14 sets, daily range): BP systolic 112–136; BP diastolic 60–81; PULSE 55–80; RESP 14–18; TEMP 36–36.6; O2SAT 98–100
[2018-07-21] MEDS: MAGNESIUM SULFATE 20 GM/500 ML IV.SOLN IV ×2 (01:23→12:24)
--- NOTE | 2018-07-21 02:40 | PC.NURSE ---
Patient transfer from center to acute care room 202, all personal belongings came with patient. Patient in no acute distress. Alert/oriented. Introduced to staff and instructed heart surgeon light use. IV meds infusing per orders.
[2018-07-21] MEDS: AMPICILLIN 2,000 MG in SODIUM CHLORIDE 0.9% 100 ML 200 ML IV ×2 (03:05→09:02)
--- NOTE | 2018-07-21 03:53 | PC.NURSE ---
Pt arrived from the center at aprox 0250, vss, fundal height is 2 below the umbilicus, pt reports discomfort at 2/10. LR running at TKO, magnesium running at a maintenance rate of 2.0 gr/hr(50.0 ml/hr). deep tendon reflexes 2+.minimal dark red blood noted in peripad. Pt was oriented to the new room and call light.
[2018-07-21] MEDS: GENTAMICIN 110 MG in SODIUM CHLORIDE 0.9% 100 ML 102.75 ML IV (05:16)
--- NOTE | 2018-07-21 05:16 | PM.OBPN.1 ---
Subjective - OB Narrative: Pt reports that overall she is feeling well this morning. She was able to get some sleep last night, which has helped. She denies any headaches, vision changes, RUQ pain. Her swelling is improving. She has passed flatus and ambulated. Her lochia is decreasing appropriately. She has voided. Date Patient Seen: 07/21/18 Time Patient Seen: 08:45 Exam Vital Signs (past 8 hours): - 07/21/18 03:00 07/21/18 04:00 07/21/18 05:00 Temperature 97.4 F L 97.0 F L Pulse Rate 59 L 55 L 62 Respiratory Rate 16 14 16 Blood Pressure 121/72 112/73 117/74 Pulse Oximetry 99 99 Oxygen Flow Rate 98 Narrative Exam Narrative: Gen: NAD, sitting comfortably in bed, appears well CV: RRR, no murmurs Resp: clear to auscultation bilaterally Abd: fundus firm and below the umbilicus, appropriately tender, nondistended, normoactive bowel sounds Ext: trace edema bilaterally Neuro: 1+ patellar DTR, no clonus Objective Labs Result Diagrams: 07/21/18 05:04 07/21/18 05:04 Labs: Laboratory Results - last 24 hr 07/20/18 07/20/18 07/20/18 14:10 14:10 21:38 WBC 29.6 H D RBC 4.18 Hgb 11.7 L Hct 34.3 L MCV 82.0 MCH 27.9 MCHC 34.0 RDW 14.7 Plt Count 195 Neut % (Auto) Not Reportable Lymph % (Auto) Not Reportable [place] % (Auto) Not Reportable Eos % (Auto) Not Reportable Baso % (Auto) Not Reportable Lymph # (Auto) Not Reportable [place] # (Auto) Not Reportable Baso # (Auto) Not Reportable Total Counted 100 Seg Neutrophils % 84.0 H Band Neutrophils % 10.0 H Lymphocytes % (Manual) 3.0 L Monocytes % (Manual) 3.0 Neutrophils # (Manual) 37311 H RBC Morphology See below Polychromasia 2+ H Sodium 134 L Potassium 4.0 Chloride 105 Carbon Dioxide 20 L BUN 16 Creatinine 1.40 H Estimated GFR 47.5 L BUN/Creatinine Ratio 11.4 Glucose 150 H Calcium 8.7 Magnesium 5.4 H* Total Bilirubin 1.3 AST 33 ALT 24 Alkaline Phosphatase 211 H Total Protein 6.2 L Albumin 3.1 L Globulin 3.1 Albumin/Globulin Ratio 1.0 Assessment & Plan (1) 37 weeks gestation of : Status: Acute Current Visit: Yes (2) Hypertension affecting in third trimester: Status: Acute Current Visit: Yes (3) Severe preeclampsia: Status: Acute Current Visit: Yes (4) Chorioamnionitis: Status: Acute Current Visit: Yes (5) Status post vacuum-assisted vaginal delivery: Status: Acute Current Visit: Yes Plan day: 1 Comments: 23yo PPD #1 s/p vacuum-assisted with shoulder dystocia. Infant did require prolonged resuscitation and [facility]. Pt with chorioamnionitis while in labor. Also with preeclampsia, with BPs consistently to severe range requiring IV Labetalol (total 30mg given) and initiation of MgSO4. No evidence of HELLP. Creatinine elevated to 1.4, but now normalized with > 2.4L of urine output. - Repeat CMP and CBC tomorrow AM - Continue to monitor for diuresis - Continue MgSO4 at 2g/hr for 24hrs, plan to stop at 3pm today assuming BPs remain in acceptable range - Continue 100mg PO Labetalol BID - Monitor BPs closely. Have been normotensive since 6pm yesterday. - Continue Ampicillin and Gentamicin for 24hrs . Pt has remained afebrile. Plan to d/c at 11am today. Time Spent With Patient Total time spent is greater than 50% in coordination of care (as documented) at patient's floor/unit and/or counseling patient: 25 - 35 minutes
[2018-07-21 05:30] LABS: Alanine Aminotransferase 31 IU/L (9-52); Albumin 2.7 g/dL (3.5-5.0); Albumin Globulin Ratio 0.9 (1.0-2.8); Alkaline Phosphatase 185 U/L (38-126); Aspartate Aminotransferase 23 IU/L (14-36); Bilirubin Total 0.4 mg/dL (0.2-1.3); Blood Urea Nitrogen 14 mg/dL (7-17); Calcium 7.6 mg/dL (8.4-10.2); Carbon Dioxide 22 mmol/L (22-32); Chloride 105 mmol/L (98-107); Estimated Glomerular Filt Rate > 60.0 mL/min (>60); Glucose 104 mg/dL (70-100); HEMOLYSIS < 15 (0-50); Potassium 3.7 mmol/L (3.4-5.1); Sodium 135 mmol/L (137-145); Total Protein 5.7 g/dL (6.3-8.2)
[2018-07-21 05:31] LABS: Add Manual Diff / Slide Review NO; Basophils Absolute Auto 0 /uL (0-100); Eosinophils Absolute Auto 0 /uL (0-450); Eosinophils Percent Auto 0.2 % (2-4); Hematocrit 28.4 % (36-46); Hemoglobin 9.6 g/dL (12.0-16.0); Lymphocytes Absolute Auto 1200 /uL (1100-4500); Lymphocytes Percent Auto 6.3 % (25-40); Mean Corpuscular HGB Conc 33.7 % (30-36); Mean Corpuscular Hemoglobin 27.9 PG (26-34); Mean Corpuscular Volume 82.8 fL (80-100); Monocytes Absolute Auto 800 /uL (0-900); Monocytes Percent Auto 4.1 % (3-14); Neutrophils Absolute Auto 16900 /uL (1500-7000); Neutrophils Percent Auto 89.4 % (50-75); Platelet Count 179 X10^3/uL (150-400); Red Blood Cell Count 3.43 X10^6/uL (4.0-5.2); Red Cell Distribution Width 14.7 % (11.6-14.8); White Blood Cell Count 18.9 X10^3/uL (4.5-11.0)
[2018-07-21 05:33] LABS: Magnesium 6.3 mg/dL (1.6-2.3)
--- NOTE | 2018-07-21 08:51 | CM.DANOTE ---
Addendum entered by iLzz Lynch R.N. 07/21/18 10:54: Discussed case during rounds. Baby was resuscitated for approximately 5 minutes, including respiratory team, pediatrics, and OB. Baby [facility]. During delivery, baby had Shoulder Dystocia, and infection in amniotic fluid. Mother having severe pre-eclampsia. Mother did not discuss any details of baby's , or that [facility] was at [facility], but she was pleasant, and happy about her baby. Original Note: DCP: Case received, EMR reviewed and met with patient. Introduced self and role. DCP template completed with information currently available. Patient is a 23 year old female who admitted on 07-18 in the evening, to the care of the hospitalist/OB. PCP: Dr. García. Payer: confirmed: [facility] [employer]/Medicaid. Patient gave at 37 weeks gestation. She ended up with HTN, which led to Preeclampsia. She had her baby girl post vacuum assisted delivery. She stated that she lives with her boyfriend who is watching the baby, and that the baby weighed 7 pounds. According to her nurse, Negin, [facility] at [facility], and is unclear if mom is aware. This is patient's first baby, and has support of her mother as well. P: DCP to continue to follow. Patient should be able to go home when she is medically stable. Lizz Lynch RN/Steward/Stewardess Third
[2018-07-21] MEDS: FERROUS GLUCONATE 324 MG TABLET PO (09:02)
--- NOTE | 2018-07-21 10:10 | PC.NURSE ---
PT IN [employer] AND TALKATIVE ABOUT INFANT WHO IS AT [facility] IN [place] WITH YAZ- SHE UNDERSTANDS THAT SHE WILL BE HERE FOR DAY OR SO MORE- REFUSES NARCOTIC- BUT WILL TAKE IBUPROFEN PRN- VERY ATTENTIVE TO FLIGHT NURSE UP TO VOID ON HER OWN- NO N/V PAIN CONTROLLED
[2018-07-21] MEDS: LABETALOL 100 MG TABLET PO ×2 (10:48→20:15)
[2018-07-21] MEDS: DOCUSATE 250 MG CAPSULE PO (10:50)
[2018-07-21] MEDS: IBUPROFEN 600 MG TABLET PO (11:30)
--- NOTE | 2018-07-21 18:43 | PC.NURSE ---
Alicia shift note: Patient awake, alert, and calm. NO c/o headache, pain, or discomfort. VSS. Ambulating in room independently, and had a shower. Lochia still present, scant amount to quarter size. Peripad in place. Call light within reach.
[2018-07-22 01:31] VITALS: BP 122/74; PULSE 86; RESP 13; TEMP 36.8; O2SAT 98
[2018-07-22] MEDS: ACETAMINOPHEN 325 MG TABLET 650 MG PO (05:24)
[2018-07-22 05:36] VITALS: BP 126/65; PULSE 69; RESP 12; TEMP 37; O2SAT 98
--- NOTE | 2018-07-22 05:50 | PC.NURSE ---
Pt's. B/P so far is WNL, fundus is approximately 2 finger below the umbilicus, lochia is scant, only c/o is abd. cramping which she relates to menstrual cramp. Pt. declined Percocet, only wanted Tylenol. Plan is to dc today and per L&D nurse, they will be handling pts. dc instructions.
[2018-07-22 07:04] LABS: Hematocrit 26.8 % (36-46); Hemoglobin 9.1 g/dL (12.0-16.0); Mean Corpuscular Hemoglobin 28.2 PG (26-34); Platelet Count 176 X10^3/uL (150-400); Red Blood Cell Count 3.24 X10^6/uL (4.0-5.2); Red Cell Distribution Width 15.2 % (11.6-14.8); White Blood Cell Count 12.7 X10^3/uL (4.5-11.0)
[2018-07-22 07:23] LABS: Alanine Aminotransferase 27 IU/L (9-52); Albumin 2.7 g/dL (3.5-5.0); Albumin Globulin Ratio 0.9 (1.0-2.8); Alkaline Phosphatase 150 U/L (38-126); Aspartate Aminotransferase 19 IU/L (14-36); BUN Creatinine Ratio 21.3 (6-22); Bilirubin Total 0.2 mg/dL (0.2-1.3); Blood Urea Nitrogen 17 mg/dL (7-17); Calcium 7.7 mg/dL (8.4-10.2); Carbon Dioxide 24 mmol/L (22-32); Chloride 104 mmol/L (98-107); Estimated Glomerular Filt Rate > 60.0 mL/min (>60); Globulin 2.9 g/dL (1.7-4.1); Glucose 97 mg/dL (70-100); HEMOLYSIS < 15 (0-50); Potassium 3.9 mmol/L (3.4-5.1); Sodium 137 mmol/L (137-145); Total Protein 5.6 g/dL (6.3-8.2)
--- NOTE | 2018-07-22 08:37 | PM.OBDS.1 ---
Discharge Providers Date of admission: 07/18/18 19:04 Primary care physician: Tania García MD Consults: 07/20/18 14:10 Consult to [facility] Routine Comment: Discharge provider: Tania García MD Discharge Date: 07/22/18 Summary Date Patient Seen: 07/22/18 Time Patient Seen: 08:00 Hospital Course: The pt was admitted for IOL for gestational hypertension. Initial labs showed elevated Pr/Cr, and she was diagnosed with pre-eclampsia without severe features. The pt received cytotec and then pitocin for induction. She had an epidural for pain control. Immediately prior to receiving the epidural, her BPs did elevate to severe range and she received a total of 30mg IV Labetalol with good improvement in her BPs. After epidural, her BPs remained in acceptable range. The pt made slow but steady cervical change on pitocin. She developed tachycardia and maternal fever during the 1st stage of labor, and was diagnosed with chorioamnionitis. She was started on Ampicillin and Gentamicin. The pt had a prolonged 2nd stage of labor. A vacuum was used to assist with delivery when the pt was due to maternal exhaustion and acutely worsening tachycardia. The head was delivered, and then there was a 2 minute shoulder dystocia resolved after Jones, suprapubic pressure, Woodscrew, and [place]. Baby did required prolonged resuscitation with APGARs 0/0/1, and was transferred to [facility] NICU for ongoing care. , the pt received IV antibiotics for 24hrs and remained afebrile. Her BPs elevated to severe range, and she received 30mg IV Labetalol and was started on 100mg PO Labetalol BID. She also received 24hrs of MgSO4. Labs showed no evidence of HELLP throughout her hospitalization. The pt remained asymptomatic. Her BPs normalized on the PO Labetalol, and at the time of discharge had been in normal range for more than 24hrs. The pts lochia decreased appropriately. At the time of discharge she was ambualting, voiding, and passing flatus without difficulty. She was pumping regularly, but not yet producing any breastmilk. She will f/u in 1 week for BP check in clinic, and was instructed to continue to check her BPs at home. She will continue the PO Labetalol at home. She is undecided regarding control. Discharge Diagnosis (1) 37 weeks gestation of : Status: Acute (2) Hypertension affecting in third trimester: Status: Acute (3) Severe preeclampsia: Status: Acute (4) Chorioamnionitis: Status: Acute (5) Status post vacuum-assisted vaginal delivery: Status: Acute Time Spent with Patient Total time spent providing and/or coordinating discharge services: Objective Labs Result Diagrams: 07/22/18 06:30 07/22/18 06:30 Labs: Laboratory Results - last 24 hr 07/22/18 07/22/18 06:30 06:30 WBC 12.7 H RBC 3.24 L Hgb 9.1 L Hct 26.8 L MCV 83.0 MCH 28.2 MCHC 34.0 RDW 15.2 H Plt Count 176 Sodium 137 Potassium 3.9 Chloride 104 Carbon Dioxide 24 BUN 17 Creatinine 0.80 Estimated GFR > 60.0 BUN/Creatinine Ratio 21.3 Glucose 97 Calcium 7.7 L Total Bilirubin 0.2 AST 19 ALT 27 Alkaline Phosphatase 150 H Total Protein 5.6 L Albumin 2.7 L Globulin 2.9 Albumin/Globulin Ratio 0.9 L Discharge Plan Discharge Plan Patient Disposition: Home Discharge comment: No intercourse for 6 weeks. Please check your blood pressure at home daily and bring your log to your next appointment. Discharge Med Rec/Prescriptions Prescriptions: New acetaminophen 325 mg Tablet 650 mg PO Q6HR PRN (Reason: Pain, Mild (1-3)) Qty: 30 RF: 0 ibuprofen 600 mg Tablet 600 mg PO Q6HR PRN (Reason: Pain, Mild (1-3)) Qty: 30 RF: 0 labetalol 100 mg Tablet 100 mg PO BID Qty: 60 RF: 1 docusate sodium 250 mg Capsule 250 mg PO DAILY Qty: 30 RF: 0 ferrous gluconate 324 mg (38 mg iron) Tablet 324 mg PO DAILY Qty: 30 RF: 0 Follow up/Referrals: Tania García MD [Primary Care Provider] - 08/02/18 (August 02, at 12pm with Dr García) Provider Discharge Instructions Diet: Diet as Tolerated and Regular Skin/Wound/Dressing Care Report to your healthcare provider any signs of infection, such as:: chills, fever, night sweats, increased pain and unusual drainage Visit Report/Discharge Packet Instructions: Pre-eclampsia, DI for Labor and Delivery, Vaginal Stand Alone Forms: Discharge: Care Visit Report Forms: Stroke Signs & Symptoms Discharge Data Primary Care Provider: Tania García Attending Provider: Tania García Admit Date/Time: 07/18/18 19:04 Discharges patient from system. Discharge Date/Time: 07/22/18 10:10
[2018-07-22 08:48] VITALS: BP 137/86; PULSE 76; RESP 16; TEMP 37; O2SAT 98
--- NOTE | 2018-07-22 09:34 | PC.NURSE ---
Addendum entered by Kristi Quinonez R.N. 07/22/18 10:07: center requesting pt's stored milk to be brought to pt. At 0955 Went to center unit, brought one syringe of milk with pt's correct label on it. Reviewed Discharge instructions with pt related to F/U appointment, medications, recording daily BP and if symptomatic, vaginal discharge expectations. No voiced concerns. center nurse to give MMR vaccine. Pt's mother present to drive pt home. Original Note: Day Shift- PIV removed from right wrist at 0820 without difficulty. Pt set up in shower at [address] García in to see pt at 0810, plan for nurse and a nurse from Mother/Baby unit to come assess and speak to pt regarding discharge. At 0850, pt's mother [facility] Pt left unit at 0925 unseen/unknown by this policy writer sales. Reported from APPLIED RESEARCH DIRECTOR that nurse from mother/baby unit took pt off unit for discharge. No scheduled AM meds given.
[2018-07-22 09:47] VITALS: BP 137/86; PULSE 76; RESP 16; TEMP 37
[2018-07-22] MEDS: MEASLES,MUMPS,RUBELLA VACC/PF 0.5 ML VIAL SUBCUT (10:04)
== END 2018-07-22 10:10 | disposition home or self-care (01) | DRG 560 ==
LOC: LABOR 07-20 20:45 → AC 07-21 02:23
PROVIDERS: Admitting Provider Family Medicine; PCP Family Medicine; Visit Provider Family Medicine
DX: O14.94 Unspecified pre-eclampsia, complicating childbirth (principal); O14.15 Severe pre-eclampsia, complicating the puerperium; O41.1230 Chorioamnionitis, third trimester, not applicable or unspecified; O76 Abnormality in fetal heart rate and rhythm complicating labor and delivery; O75.81 Maternal exhaustion complicating labor and delivery; O69.1XX0 Labor and delivery complicated by cord around neck, with compression, not applicable or unspecified; O66.0 Obstructed labor due to shoulder dystocia; Z3A.37 37 weeks gestation of pregnancy; Z37.0 Single live birth
CPT/HCPCS: 01967; 36415; 59050; 59409; 80053; 82570; 83735; 84156; 85025; 85027; 86850; 86900; 86901; 88307; G0379; J0290; J2590; J3475

== ENCOUNTER 2019-08-18 20:04 | Emergency (ER) | payer OTHER, MEDICAID, SELFPAY ==
[2019-08-18 20:15] VITALS: BP 144/84; PULSE 86; RESP 20; TEMP 36.9; O2SAT 98
--- NOTE | 2019-08-18 22:49 | ED_ITS ---
HPI - URI/Sore Throat General Chief Complaint: Upper Respiratory Symptoms Stated Complaint: COUGH SWELLING OF TONSILS SORE THROAT Time Seen by Provider: 08/18/19 22:33 Source: patient Mode of arrival: Ambulatory Limitations: no limitations History of Present Illness HPI Narrative: 24-year-old female nonsmoker with noncontributory medical history presents with a chief complaint of on and off episodes of sore throat and swelling of tonsils for the past few months. She denies any current symptoms. She states she had an episode earlier today which lasted about 10 minutes. She denies any headache, runny nose or cough. She has had no fever or chills. She denies any nausea, vomiting or diarrhea. She denies seeing her doctor for these symptoms. She has not taken any medications. MD Complaint: sore throat Onset (ago): hour(s) Duration: now resolved Severity: mild Relieving factors: nothing Exacerbating factors: nothing Able to tolerate fluids by mouth: Yes Associated symptoms: denies other symptoms Treatments prior to arrival: none Related Data Previous Rx's Medication Instructions Recorded norethindrone (contraceptive) 0.35 0.35 mg PO DAILY #28 tab 03/20/19 mg tablet ketorolac 10 mg PO Q6H PRN #14 tab 08/18/19 Allergies Allergy/AdvReac Type Severity Reaction Status Date / Time No Known Drug Allergies Allergy Verified 08/30/18 15:17 Review of Systems Constitutional Constitutional: Denies chills, Denies fatigue, Denies fever(s), Denies frequent falls, Denies lethargy and Denies weakness Eyes Eyes: Denies change in vision, Denies eye discharge, Denies irritation and Denies loss of vision ENT Ears, Nose, Mouth, and Throat: Denies change in voice, Denies dizziness, Denies neck pain, Reports sore throat and Denies throat swelling Cardiovascular Cardiovascular: Denies chest pain, Denies irregular heart rhythm, Denies lightheadedness, Denies palpitations, Denies dyspnea, Denies dyspnea on exertion and Denies orthopnea Respiratory Respiratory: Denies cough, Denies dyspnea, Denies dyspnea on exertion and Denies wheezing Gastrointestinal Gastrointestinal: Denies abdominal pain, Denies change in bowel habits, Denies diarrhea, Denies nausea and Denies vomiting Genitourinary Genitourinary: Denies hematuria, Denies flank pain, Denies urinary incontinence and Denies urinary urgency Musculoskeletal Musculoskeletal: Denies back pain, Denies muscle weakness, Denies neck pain, Denies numbness and Denies tingling Integumentary/Breasts Skin/Breast: Denies pruritus, Denies erythema, Denies rash and Denies wounds Neurologic Neurologic: Denies behavioral changes, Denies confusion, Denies dizziness, Denies frequent falls, Denies loss of vision, Denies numbness, Denies tingling and Denies weakness Psychiatric Psychiatric: Denies anxiety, Denies behavioral changes, Denies confusion, Denies depression, Denies homicidal ideation and Denies suicidal ideation Endocrine Endocrine: Denies fatigue, Denies flushing and Denies palpitations Hematologic/Lymphatic Hematologic/Lymphatic: Denies easy bruising Allergic/Immunologic Allergic/Immunologic: Denies urticaria, Denies throat swelling and Denies wheezing Patient History Medical History Chorioamnionitis (Resolved) Severe preeclampsia (Resolved) Status post vacuum-assisted vaginal delivery (Resolved) Social History household members: significant other Smoking Status: Never smoker Smoking Status: Never smoker Exam Narrative Exam Narrative: GEN: 24-year-old female appears stated age AOx3 and in mild distress EYES: Pupils are equal, round, and reactive to light and accommodation. Extraoccular muscles are intact bilaterally. There is no subconjunctival hemorrhage or exudate. ENT: No tonsillar swelling, erythema or exudate. There is some clear postnasal drip. No cervical lymphadenopathy CHEST: Lungs are clear to auscultation bilaterally and free of wheezes, rales, or rhonchi. Heart rate is regular rhythm, there are no murmurs, clicks, rubs, or gallops. There is no chest wall tenderness. ABD: Abdomen is soft and nontender. There is no guarding or rebound. Bowel sounds are normal in all 4 quadrants. There is no mass or organomegaly. EXT: Full painless ROM of all extremities with no loss of sensation or strength. SKIN: Warm, pink, and dry. No erythema or rash Initial Vital Signs Initial Vital Signs: Vital Signs Temperature 98.5 F 08/18/19 20:15 Pulse Rate 86 08/18/19 20:15 Respiratory Rate 20 08/18/19 20:15 Blood Pressure 144/84 H 08/18/19 20:15 Pulse Oximetry 98 08/18/19 20:15 Course Vital Signs Vital signs: Vital Signs - 8 hr 08/18/19 20:15 Temperature 98.5 F Pulse Rate 86 Respiratory Rate 20 Blood Pressure 144/84 H Pulse Oximetry 98 MDM - URI/Sore Throat Lab Data Labs: Point of Care Testing Rapid Strep A Negative Discharge Plan Departure Patient Disposition: Home Clinical Impression: Pharyngitis Qualifiers: Pharyngitis/tonsillitis etiology: unspecified etiology Qualified Code(s): J02.9 - Acute pharyngitis, unspecified Discharge Date/Time: 08/18/19 23:04 Instructions: DI for Pharyngitis/Tonsillopharyngitis -- Adult Activity Restrictions/Additional Instructions: *You have been diagnosed with [ tonsillar swelling ] *What to do: *Take medications as directed: prescription sent to [facility] in [place] at your request. Additionally, I'd consider taking over the counter antihistamines to dry secretions. *Follow up with your primary care provider in 2-3 days, call for an appointment. Let them know you were seen in the Emergency Department and that we ask that you be seen in follow up *Return to ER if you should have any new, worsening or concerning symptoms Prescriptions: New ketorolac 10 mg tablet 10 mg PO Q6H PRN (Reason: pain) Qty: 14 RF: 0 No Action norethindrone (contraceptive) [Noemi] 0.35 mg tablet 0.35 mg PO DAILY Qty: 28 RF: 6 Referrals: Flavio Fontenot MD [Physician] - Tania García MD [Primary Care Provider] -
[2019-08-18 22:59] VITALS: BP 150/78; PULSE 84; RESP 16; O2SAT 98
== END 2019-08-18 23:04 | disposition home or self-care (01) ==
PROVIDERS: Emergency Provider Emergency Medicine; PCP Family Medicine
DX: J02.9 Acute pharyngitis, unspecified (principal)
CPT/HCPCS: 87880; 99282

== ENCOUNTER 2020-02-22 21:14 | Emergency (ER) | payer OTHER, MEDICAID, SELFPAY ==
[2020-02-22 21:21] VITALS: BP 156/96; PULSE 78; RESP 12; TEMP 36.7; O2SAT 97; BMI 39.6
--- NOTE | 2020-02-22 21:38 | ED_ITS ---
HPI - General Adult General Chief complaint: Vaginal Bleeding Stated complaint: abnormal vag bleeding Time Seen by Provider: 02/22/20 21:37 Source: patient Mode of arrival: Ambulatory History of Present Illness HPI narrative: 25-year-old presents with vaginal bleeding and cramping over the last 3-4 days that is getting increasingly worse. She states she had her normal menstrual cycle starting on February 12 at last approximately 3 days and was its usual light presentation. Then on February 16 she again had vaginal bleeding this time with increasing cramping and increasing clots. The cramping and clots have continued and this evening seem like they were getting worse which prompted her emergency room visit today. She notes occasional dizziness when standing up quickly. Has been consistent taking her oral contraceptives. Related Data Previous Rx's Medication Instructions Recorded norethindrone (contraceptive) 0.35 0.35 mg PO DAILY #28 tab 03/20/19 mg tablet ketorolac 10 mg PO Q6H PRN #14 tab 08/18/19 Allergies Allergy/AdvReac Type Severity Reaction Status Date / Time No Known Drug Allergies Allergy Verified 02/22/20 21:24 Review of Systems Review of Systems Narrative: Pertinent positive and negative findings as per HPI Remainder of review of systems is otherwise unremarkable for Constitutional: Fevers, chills, weakness ENT: No sore throat, neck pain, ear pain CV: Chest pain, palpitations, dyspnea on exertion Respiratory: Cough, wheeze, dyspnea GI: Nausea, vomiting, diarrhea, change in bowel habits, black or bloody stools : Dysuria, hematuria, flank pain MS: Muscle weakness, numbness, joint swelling or warmth Skin: Rashes, nonhealing lesions Patient History Medical History Chorioamnionitis (Resolved) Severe preeclampsia (Resolved) Status post vacuum-assisted vaginal delivery (Resolved) Social History household members: significant other Smoking Status: Never smoker Smoking Status: Never smoker tobacco type: e-cigarettes Substance Use Type: does not use Exam Narrative Exam Narrative: General: Healthy appearing, in no acute distress. Able to give a complete and coherent history. Well-nourished well-developed HEENT: Moist mucous membranes, normal sclera with reactive pupils, Respiratory: Lungs are clear to auscultation, no wheezing no rales no rhonchi. Full and symmetrical air movement Cardiac: Regular rate and rhythm no murmurs no bruits Abdomen: Soft nontender good bowel tones, no flank pain Skin: Warm and dry, no rashes Neurologic: Grossly neurologically intact with no obvious asymmetries or abnormalities Extremities: No trauma, well perfused Psych: Cooperative, appropriate insight and affect Initial Vital Signs Initial Vital Signs: Vital Signs Temperature 98.1 F 02/22/20 21:21 Pulse Rate 78 02/22/20 21:21 Respiratory Rate 12 02/22/20 21:21 Blood Pressure 156/96 H 02/22/20 21:21 Pulse Oximetry 97 02/22/20 21:21 Course Orders Ordered: ED Orders 02/22/20 21:55 Urinalysis Screen (Dip Only) Stat Urine Microscopic Stat 02/22/20 22:23 Urinalysis and Microscopic Stat 02/22/20 22:30 Complete Blood Count AUTO DIFF Stat Comprehensive Metabolic Panel Stat HCG Quantitative /Beta subunit Stat Hemoglobin A1C% w Est Avg Glu Stat Discontinued Medications Ketorolac Tromethamine (Toradol) 15 mg IV NOW ONE Stop: 02/22/20 22:23 Last Admin: 02/22/20 22:34 Dose: 15 mg Documented by: YUNIEL Vital Signs Vital signs: Vital Signs - 8 hr 02/22/20 21:21 02/22/20 23:57 Temperature 98.1 F Pulse Rate 78 74 Respiratory Rate 12 14 Blood Pressure 156/96 H 138/76 Pulse Oximetry 97 98 Medical Decision Making Lab Data Lab results reviewed: Yes I reviewed the patient's lab results. Result diagrams: 02/22/20 22:30 02/22/20 22:30 Labs: Lab Results 02/22/20 02/22/20 02/22/20 Range/Units 21:55 22:30 22:30 WBC 7.0 (4.5-11.0) X10^3/uL RBC 4.77 (4.0-5.2) X10^6/uL Hgb 13.3 (12.0-16.0) g/dL Hct 38.5 (36-46) % MCV 80.8 (80-100) fL MCH 28.0 (26-34) PG MCHC 34.6 (30-36) % RDW 13.5 (11.6-14.8) % Plt Count 199 (150-400) X10^3/uL Neut % (Auto) 57.1 (50-75) % Lymph % (Auto) 35.7 (25-40) % [place] % (Auto) 4.1 (3-14) % Eos % (Auto) 2.3 (2-4) % Baso % (Auto) 0.8 (0-2) % Neut # (Auto) 4000 (4566-0941) /uL Lymph # (Auto) 2500 (7860-0070) /uL [place] # (Auto) 300 (0-900) /uL Eos # (Auto) 200 (0-450) /uL Baso # (Auto) 100 (0-100) /uL Sodium (137-145) mmol/L Potassium (3.4-5.1) mmol/L Chloride (98-107) mmol/L Carbon Dioxide (22-32) mmol/L BUN (7-17) mg/dL Creatinine (0.52-1.04) mg/dL Estimated GFR (>60) mL/min BUN/Creatinine Ratio (6-22) Glucose (70-100) mg/dL Hemoglobin A1c 10.1 H (4.0-6.0) % Calcium (8.4-10.2) mg/dL Total Bilirubin (0.2-1.3) mg/dL AST (14-36) IU/L ALT (<35) IU/L Alkaline Phosphatase (38-126) U/L Total Protein (6.3-8.2) g/dL Albumin (3.5-5.0) g/dL Globulin (1.7-4.1) g/dL Albumin/Globulin Ratio (1.0-2.8) HCG, Quant mIU/mL Urine RBC 5-10/hpf H (0-5/HPF) Urine WBC None seen (0-5/HPF) Urine Bacteria None seen (None) Ur Culture Indicated? Cult not indicated 02/22/20 02/22/20 Range/Units 22:30 22:30 WBC (4.5-11.0) X10^3/uL RBC (4.0-5.2) X10^6/uL Hgb (12.0-16.0) g/dL Hct (36-46) % MCV (80-100) fL MCH (26-34) PG MCHC (30-36) % RDW (11.6-14.8) % Plt Count (150-400) X10^3/uL Neut % (Auto) (50-75) % Lymph % (Auto) (25-40) % [place] % (Auto) (3-14) % Eos % (Auto) (2-4) % Baso % (Auto) (0-2) % Neut # (Auto) (8304-8856) /uL Lymph # (Auto) (1279-2604) /uL [place] # (Auto) (0-900) /uL Eos # (Auto) (0-450) /uL Baso # (Auto) (0-100) /uL Sodium 134 L (137-145) mmol/L Potassium 4.0 (3.4-5.1) mmol/L Chloride 96 L (98-107) mmol/L Carbon Dioxide 30 (22-32) mmol/L BUN 12 (7-17) mg/dL Creatinine 0.45 L (0.52-1.04) mg/dL Estimated GFR > 60.0 (>60) mL/min BUN/Creatinine Ratio 26.7 H (6-22) Glucose 428 H (70-100) mg/dL Hemoglobin A1c (4.0-6.0) % Calcium 9.7 (8.4-10.2) mg/dL Total Bilirubin 1.2 (0.2-1.3) mg/dL AST 127 H (14-36) IU/L ALT 249 H (<35) IU/L Alkaline Phosphatase 192 H (38-126) U/L Total Protein 7.8 (6.3-8.2) g/dL Albumin 4.5 (3.5-5.0) g/dL Globulin 3.3 (1.7-4.1) g/dL Albumin/Globulin Ratio 1.4 (1.0-2.8) HCG, Quant < 2.4 mIU/mL Urine RBC (0-5/HPF) Urine WBC (0-5/HPF) Urine Bacteria (None) Ur Culture Indicated? Point of Care Testing Test Results Negative Glucose POC 401 Urine Dip Bedside Urine Glucose 1000 mg/dl Bedside Urine Bilirubin - Negative Bedside Urine Ketone - Negative Urine Specific [place] 1.010 Bedside Urine Occult Blood +++ Bedside Urine pH 6.5 Bedside Urine Protein - Negative Bedside Urine Urobilinogen - Negative Bedside Urine Nitrite - Negative Bedside Urine Leukocytes - Negative Esterase Point of care testing: Point of Care Testing Test Results Negative Glucose POC 401 Urine Dip Bedside Urine Glucose 1000 mg/dl Bedside Urine Bilirubin - Negative Bedside Urine Ketone - Negative Urine Specific [place] 1.010 Bedside Urine Occult Blood +++ Bedside Urine pH 6.5 Bedside Urine Protein - Negative Bedside Urine Urobilinogen - Negative Bedside Urine Nitrite - Negative Bedside Urine Leukocytes - Negative Esterase MDM Narrative Medical decision making narrative: 25-year-old woman with vaginal bleeding and cramping worse over the last 4-5 days. No evidence of acute anemia. Of note she does have a blood sugar elevated above 400 and elevated AST isn't on [place] without any corresponding right upper quadrant pain. No evidence of miscarriage. Reassurance is given regarding the heavy vaginal bleeding and cramping along with instructions for ibuprofen and Tylenol. Will refer her back to her primary care physician for concerns for diabetes and further workup regarding the abnormal liver studies. Discharge Plan Departure Patient Disposition: Home Clinical Impression: Vaginal bleeding, Hyperglycemia, Transaminase or LDH elevation Discharge Date/Time: 02/22/20 23:58 Instructions: DI for Hyperglycemia -- Adult, DI for Vaginal Bleeding Activity Restrictions/Additional Instructions: Thank you for coming in today There does not appear to be any life-threatening issue to explain the bleeding and vaginal cramping that you are having today. You are not and your blood cell count is quite reassuring. Please continue your control pills and I anticipate that the bleeding will slow down and stop over the next couple of days. Using 400 mg of ibuprofen (2 [id number] pills) and 1 Tylenol every 6 hours can be very helpful in controlling pain. With your blood work today we noticed that your blood sugar was quite high, above 400. While 1 single reading cannot make a diagnosis of diabetes, that single reading being above 400 is certainly concerning. Please schedule an appointment with your primary care physician to review the elevated blood sugar and the probable diagnosis of diabetes. Please let Dr. Weinberg know that we did a hemoglobin A1c in the emergency room and that the results should be available within 1-2 days Another incidental finding on your blood work was elevated liver enzymes. There is nothing to suggest that you have an acute issue that needs hospitalization at this time however will need to follow these abnormal results to make sure they return to normal or help decide if additional workup is required If you feel that you are getting worse please return to the emergency department Prescriptions: No Action norethindrone (contraceptive) [Noemi] 0.35 mg tablet 0.35 mg PO DAILY Qty: 28 RF: 6 ketorolac 10 mg tablet 10 mg PO Q6H PRN (Reason: pain) Qty: 14 RF: 0 Referrals: Bruno Anna MD [Non-Staff] - Tania García MD [Primary Care Provider] -
[2020-02-22 21:56] LABS: Bacteria Urine None Seen; WBC Urine None Seen (0-5/HPF)
[2020-02-22 22:11] LABS: Culture Indicated Urine Cult Not Indicated; RBC Urine 5-10/HPF (0-5/HPF)
[2020-02-22] MEDS: KETOROLAC 60 MG/2 ML VIAL 15 MG IV (22:34)
[2020-02-22 22:43] LABS: Add Manual Diff / Slide Review NO; Basophils Absolute Auto 100 /uL (0-100); Basophils Percent Auto 0.8 % (0-2); Eosinophils Absolute Auto 200 /uL (0-450); Eosinophils Percent Auto 2.3 % (2-4); Hematocrit 38.5 % (36-46); Hemoglobin 13.3 g/dL (12.0-16.0); Lymphocytes Absolute Auto 2500 /uL (1100-4500); Lymphocytes Percent Auto 35.7 % (25-40); Mean Corpuscular HGB Conc 34.6 % (30-36); Mean Corpuscular Volume 80.8 fL (80-100); Monocytes Absolute Auto 300 /uL (0-900); Monocytes Percent Auto 4.1 % (3-14); Neutrophils Absolute Auto 4000 /uL (1500-7000); Neutrophils Percent Auto 57.1 % (50-75); Platelet Count 199 X10^3/uL (150-400); Red Blood Cell Count 4.77 X10^6/uL (4.0-5.2); Red Cell Distribution Width 13.5 % (11.6-14.8)
--- NOTE | 2020-02-22 22:44 | PC.NURSE ---
Reports bleeding/cramping have increased over the past three days. Clots larger/more frequent also. Has felt lightheaded/dizzy. Last normal menstrual cycle 02/13/2020
[2020-02-22 22:50] LABS: Alanine Aminotransferase 249 IU/L (<35); Albumin 4.5 g/dL (3.5-5.0); Albumin Globulin Ratio 1.4 (1.0-2.8); Alkaline Phosphatase 192 U/L (38-126); Aspartate Aminotransferase 127 IU/L (14-36); BUN Creatinine Ratio 26.7 (6-22); Bilirubin Total 1.2 mg/dL (0.2-1.3); Blood Urea Nitrogen 12 mg/dL (7-17); Calcium 9.7 mg/dL (8.4-10.2); Carbon Dioxide 30 mmol/L (22-32); Chloride 96 mmol/L (98-107); Estimated Glomerular Filt Rate > 60.0 mL/min (>60); Globulin 3.3 g/dL (1.7-4.1); Glucose 428 mg/dL (70-100); HEMOLYSIS 39 (0-50); Sodium 134 mmol/L (137-145); Total Protein 7.8 g/dL (6.3-8.2)
[2020-02-22 23:23] LABS: HCG Quantitative /Beta subunit < 2.4 mIU/mL
[2020-02-22 23:53] LABS: Hemoglobin A1C% w Est Avg Glu 10.1 % (4.0-6.0)
[2020-02-22 23:57] VITALS: BP 138/76; PULSE 74; RESP 14; O2SAT 98
[2020-02-23 01:47] LABS: Appearance Urine UA Clear; Color Urine UA Yellow; Glucose Urine UA 3+ g/dL (Negative); Ketones Urine UA NEGATIVE (NEGATIVE); Nitrite Urine UA NEGATIVE (Negative); Occult Blood Urine UA 3+ (Negative); Protein Urine UA Negative (Negative); pH Urine UA 6.5 (4.5-8.0)
[2020-02-23 01:48] LABS: Bilirubin Urine UA NEGATIVE (NEGATIVE); Leukocyte Esterase Urine UA NEGATIVE (NEGATIVE); Urobilinogen Urine UA 0.2 E.U./dL (0.2)
== END 2020-02-22 23:58 | disposition home or self-care (01) ==
PROVIDERS: Emergency Provider Emergency Medicine; PCP Family Medicine
DX: N93.9 Abnormal uterine and vaginal bleeding, unspecified (principal); R73.9 Hyperglycemia, unspecified; R74.0 Nonspecific elevation of levels of transaminase and lactic acid dehydrogenase [LDH]
CPT/HCPCS: 36415; 80053; 81003; 81015; 81025; 83036; 84702; 85025; 96374; 99284; J1885

== ENCOUNTER 2020-04-01 19:17 | Emergency (ER) | payer OTHER, MEDICAID, SELFPAY ==
[2020-04-01 19:28] VITALS: BP 150/85; PULSE 68; RESP 20; TEMP 36.4; O2SAT 98
--- NOTE | 2020-04-01 20:15 | ED.ABDPAIN ---
HPI - Abdominal Pain General Chief Complaint: Abdominal Pain Stated Complaint: STOMACH PAINS Time Seen by Provider: 04/01/20 20:09 Source: patient Mode of arrival: Ambulatory Limitations: no limitations History of Present Illness HPI narrative: 25F nonsmoker with history of diabetes presents with her significant other and the chief complaint of a sudden onset, sharp and stabbing lower abdominal pain started about 90 minutes prior to arrival. She denies any provocation or palliation and states that it is colicky in nature and seems to maybe have radiated to her upper abdomen and largely resolved prior to her arrival. She denies fever, chills, N/V/D. She's had no recent injury. She denies urinary complaint such as frequency, urgency, or hematuria. She's had no vaginal bleeding or discharge. She was recently diagnosed with DM and started changing her diet a bit in an attempt to be more healthy. MD complaint: abdominal pain Onset (ago): minute(s) Pain Consistency: intermittent, now resolved and colicky Location: diffuse Severity: moderate Quality: cramping and stabbing Radiation: epigastric Relieving factors: nothing Exacerbating factors: nothing Associated symptoms: denies other symptoms Related Data Previous Rx's Medication Instructions Recorded norethindrone (contraceptive) 0.35 0.35 mg PO DAILY #28 tab 03/20/19 mg tablet ketorolac 10 mg PO Q6H PRN #14 tab 08/18/19 Allergies Allergy/AdvReac Type Severity Reaction Status Date / Time No Known Drug Allergies Allergy Verified 02/22/20 21:24 Review of Systems Constitutional Constitutional: Denies chills, Denies fatigue, Denies fever(s), Denies frequent falls, Denies lethargy and Denies weakness Eyes Eyes: Denies change in vision, Denies eye discharge, Denies irritation and Denies loss of vision ENT Ears, Nose, Mouth, and Throat: Denies change in voice, Denies dizziness, Denies neck pain, Denies sore throat and Denies throat swelling Cardiovascular Cardiovascular: Denies chest pain, Denies irregular heart rhythm, Denies lightheadedness, Denies palpitations, Denies dyspnea, Denies dyspnea on exertion and Denies orthopnea Respiratory Respiratory: Denies cough, Denies dyspnea, Denies dyspnea on exertion and Denies wheezing Gastrointestinal Gastrointestinal: Reports abdominal pain, Denies change in bowel habits, Denies diarrhea, Denies nausea and Denies vomiting Musculoskeletal Musculoskeletal: Denies neck pain and Denies numbness Integumentary/Breasts Skin/Breast: Denies pruritus, Denies erythema, Denies rash and Denies wounds Neurologic Neurologic: Denies behavioral changes, Denies confusion, Denies dizziness, Denies frequent falls, Denies loss of vision, Denies numbness and Denies weakness Psychiatric Psychiatric: Denies anxiety, Denies behavioral changes, Denies confusion, Denies depression, Denies homicidal ideation and Denies suicidal ideation Endocrine Endocrine: Denies fatigue, Denies flushing and Denies palpitations Hematologic/Lymphatic Hematologic/Lymphatic: Denies easy bruising Allergic/Immunologic Allergic/Immunologic: Denies urticaria, Denies throat swelling and Denies wheezing Patient History Medical History Chorioamnionitis (Resolved) Severe preeclampsia (Resolved) Status post vacuum-assisted vaginal delivery (Resolved) Social History household members: significant other Smoking Status: Never smoker Smoking Status: Never smoker tobacco type: e-cigarettes Substance Use Type: does not use Exam Narrative Exam Narrative: GENERAL: [25] year old patient appears stated age. Well-nourished, well-developed patient, in mild distress. HEAD: Atraumatic. Normocephalic. EYES: Pupils equal round and reactive. Extraocular motions intact. No scleral icterus. No injection or drainage. ENT: Nose without bleeding, purulent drainage. Throat without erythema, tonsillar hypertrophy or exudate. Airway patent. NECK: Trachea midline. Non tender CARDIOVASCULAR: Regular rate and rhythm without murmurs, gallops, or rubs. RESPIRATORY: Clear to auscultation. Breath sounds equal bilaterally. No wheezes, rales, or rhonchi. GASTROINTESTINAL: Abdomen soft, non-tender, nondistended. EXTREMITIES: No edema or joint tenderness. BACK: Nontender without deformity or crepitance. No flank tenderness. NEURO: AOx3. SKIN: No rash or erythema of visible areas Initial Vital Signs Initial Vital Signs: Vital Signs Temperature 97.5 F L 04/01/20 19:28 Pulse Rate 68 04/01/20 19:28 Respiratory Rate 20 04/01/20 19:28 Blood Pressure 150/85 H 10/19/20 19:28 Pulse Oximetry 98 04/01/20 19:28 Course Orders Ordered: ED Orders 04/01/20 20:00 Complete Blood Count AUTO DIFF Stat Comprehensive Metabolic Panel Stat Lipase Stat Partial Thromboplastin Time Stat Prothrombin Time INR Stat 04/01/20 20:10 Urine Microscopic Stat 04/01/20 21:15 XR acute abdomen series Stat Vital Signs Vital signs: Vital Signs - 8 hr 04/01/20 19:28 04/01/20 21:54 Temperature 97.5 F L Pulse Rate 68 80 Respiratory Rate 20 12 Blood Pressure 150/85 H 123/81 Pulse Oximetry 98 100 MDM - Abdominal Pain Lab Data Result diagrams: 04/01/20 20:00 04/01/20 20:00 Labs: Lab Results 04/01/20 04/01/20 04/01/20 Range/Units 20:00 20:00 20:00 WBC 10.7 (4.5-11.0) X10^3/uL RBC 4.61 (4.0-5.2) X10^6/uL Hgb 13.1 (12.0-16.0) g/dL Hct 36.9 (36-46) % MCV 80.2 (80-100) fL MCH 28.5 (26-34) PG MCHC 35.6 (30-36) % RDW 13.7 (11.6-14.8) % Plt Count 244 (150-400) X10^3/uL Neut % (Auto) 71.7 (50-75) % Lymph % (Auto) 22.5 L (25-40) % Hendry % (Auto) 3.8 (3-14) % Eos % (Auto) 1.5 L (2-4) % Baso % (Auto) 0.5 (0-2) % Neut # (Auto) 7700 H (1424-1800) /uL Lymph # (Auto) 2400 (1659-1972) /uL Hendry # (Auto) 400 (0-900) /uL Eos # (Auto) 200 (0-450) /uL Baso # (Auto) 100 (0-100) /uL PT 11.4 (10.1-12.7) SECONDS INR 1.0 (0.9-1.3) APTT 34 (26.4-36.2) SECONDS Sodium 138 (137-145) mmol/L Potassium 3.9 (3.4-5.1) mmol/L Chloride 101 (98-107) mmol/L Carbon Dioxide 31 (22-32) mmol/L BUN 13 (7-17) mg/dL Creatinine 0.58 (0.52-1.04) mg/dL Estimated GFR > 60.0 (>60) mL/min BUN/Creatinine Ratio 22.4 H (6-22) Glucose 152 H (70-100) mg/dL Calcium 9.6 (8.4-10.2) mg/dL Total Bilirubin 1.0 (0.2-1.3) mg/dL AST 63 H (14-36) IU/L ALT 137 H (<35) IU/L Alkaline Phosphatase 121 (38-126) U/L Total Protein 7.9 (6.3-8.2) g/dL Albumin 4.5 (3.5-5.0) g/dL Globulin 3.4 (1.7-4.1) g/dL Albumin/Globulin Ratio 1.3 (1.0-2.8) Lipase 78 (23-300) U/L Urine RBC (0-5/HPF) Urine WBC (0-5/HPF) Ur Squamous Epith Cells (0-5/HPF) Urine Bacteria (None) Ur Culture Indicated? 04/01/20 Range/Units 20:10 WBC (4.5-11.0) X10^3/uL RBC (4.0-5.2) X10^6/uL Hgb (12.0-16.0) g/dL Hct (36-46) % MCV (80-100) fL MCH (26-34) PG MCHC (30-36) % RDW (11.6-14.8) % Plt Count (150-400) X10^3/uL Neut % (Auto) (50-75) % Lymph % (Auto) (25-40) % Hendry % (Auto) (3-14) % Eos % (Auto) (2-4) % Baso % (Auto) (0-2) % Neut # (Auto) (6766-3789) /uL Lymph # (Auto) (7369-1935) /uL Hendry # (Auto) (0-900) /uL Eos # (Auto) (0-450) /uL Baso # (Auto) (0-100) /uL PT (10.1-12.7) SECONDS INR (0.9-1.3) APTT (26.4-36.2) SECONDS Sodium (137-145) mmol/L Potassium (3.4-5.1) mmol/L Chloride (98-107) mmol/L Carbon Dioxide (22-32) mmol/L BUN (7-17) mg/dL Creatinine (0.52-1.04) mg/dL Estimated GFR (>60) mL/min BUN/Creatinine Ratio (6-22) Glucose (70-100) mg/dL Calcium (8.4-10.2) mg/dL Total Bilirubin (0.2-1.3) mg/dL AST (14-36) IU/L ALT (<35) IU/L Alkaline Phosphatase (38-126) U/L Total Protein (6.3-8.2) g/dL Albumin (3.5-5.0) g/dL Globulin (1.7-4.1) g/dL Albumin/Globulin Ratio (1.0-2.8) Lipase (23-300) U/L Urine RBC 0-1/hpf (0-5/HPF) Urine WBC 0-1/hpf (0-5/HPF) Ur Squamous Epith Cells 1-5 /hpf (0-5/HPF) Urine Bacteria Occasional (0-1) (None) Ur Culture Indicated? Cult not indicated Point of care testing: Point of Care Testing Test Results Negative Urine Dip Bedside Urine Glucose Negative Bedside Urine Bilirubin - Negative Bedside Urine Ketone - Negative Urine Specific Ostrander 1.030 Bedside Urine Occult Blood ++ Bedside Urine pH 6.0 Bedside Urine Protein - Negative Bedside Urine Urobilinogen - Negative Bedside Urine Nitrite - Negative Bedside Urine Leukocytes - Negative Esterase Imaging Data Abdominal x-ray: Radiologist's Impression: Lizbet Chakraborty 25 F [address] [address] XRay Report Signed Patient: Lizbet Chakraborty AM[facility]#: [id number] : 1995Acct:[id number] Age/Sex: 25 / FDate of Service: 04/01/20 Loc: ED Accession Number: [id number] Procedure: XR acute abdomen series Ordering Provider: Clemente Ziegler D.O. PROCEDURE: XR ACUTE ABDOMEN SERIES INDICATIONS: Abdominal pain TECHNIQUE: One view chest and two views of the abdomen were acquired. COMPARISON: None. FINDINGS: Surgical changes and devices: None. Chest: Lungs are clear. Heart size is normal. No pleural effusions. No pneumoperitoneum. Abdomen: Bowel gas pattern is normal. No suspicious calcifications. There is suggestion of mild hepatomegaly. Bones: No suspicious bony lesions. IMPRESSION: 1. Normal chest. 2. Mild hepatomegaly. 3. Nonspecific, nonobstructive bowel gas pattern. Dictated by: Alanis Bacon M.D. on 04/01/2020 at 21:41 Approved by: Alanis Bacon M.D. on 04/01/2020 at 21:42 [facility] Narrative Medical decision making narrative: Multiple etiologies for patient's symptoms considered including: [bowel obstruction vs. ovarian pain vs. appendicitis vs. other] Patient's symptoms improved over duration of stay with above-stated therapies. Findings and discharge diagnosis discussed with patient/family followed by verbalization of understanding Return precautions discussed with patient/family whom verbalize understanding. Discharge Plan Departure Patient Disposition: Home Clinical Impression: Abdominal pain Discharge Date/Time: 04/01/20 21:54 Instructions: DI for Abdominal Pain-Adult Activity Restrictions/Additional Instructions: *You have been diagnosed with [acute abdominal pain, reassuring exam, labs and x-ray] *What to do: *Take medications as directed *Follow up with your primary care provider in 2-3 days, call for an appointment. Let them know you were seen in the Emergency Department and that we ask that you be seen in follow up *Return to ER if you should have any new, worsening or concerning symptoms Prescriptions: No Action norethindrone (contraceptive) [Noemi] 0.35 mg tablet 0.35 mg PO DAILY Qty: 28 RF: 6 ketorolac 10 mg tablet 10 mg PO Q6H PRN (Reason: pain) Qty: 14 RF: 0 Referrals: Tania García MD [Primary Care Provider] -
[2020-04-01 20:21] LABS: Add Manual Diff / Slide Review NO; Basophils Absolute Auto 100 /uL (0-100); Basophils Percent Auto 0.5 % (0-2); Eosinophils Absolute Auto 200 /uL (0-450); Eosinophils Percent Auto 1.5 % (2-4); Hematocrit 36.9 % (36-46); Hemoglobin 13.1 g/dL (12.0-16.0); Lymphocytes Absolute Auto 2400 /uL (1100-4500); Lymphocytes Percent Auto 22.5 % (25-40); Mean Corpuscular HGB Conc 35.6 % (30-36); Mean Corpuscular Hemoglobin 28.5 PG (26-34); Mean Corpuscular Volume 80.2 fL (80-100); Monocytes Absolute Auto 400 /uL (0-900); Monocytes Percent Auto 3.8 % (3-14); Neutrophils Absolute Auto 7700 /uL (1500-7000); Neutrophils Percent Auto 71.7 % (50-75); Platelet Count 244 X10^3/uL (150-400); Red Blood Cell Count 4.61 X10^6/uL (4.0-5.2); Red Cell Distribution Width 13.7 % (11.6-14.8); White Blood Cell Count 10.7 X10^3/uL (4.5-11.0)
[2020-04-01 20:26] LABS: Alanine Aminotransferase 137 IU/L (<35); Albumin 4.5 g/dL (3.5-5.0); Albumin Globulin Ratio 1.3 (1.0-2.8); Alkaline Phosphatase 121 U/L (38-126); Aspartate Aminotransferase 63 IU/L (14-36); BUN Creatinine Ratio 22.4 (6-22); Blood Urea Nitrogen 13 mg/dL (7-17); Calcium 9.6 mg/dL (8.4-10.2); Carbon Dioxide 31 mmol/L (22-32); Chloride 101 mmol/L (98-107); Estimated Glomerular Filt Rate > 60.0 mL/min (>60); Globulin 3.4 g/dL (1.7-4.1); Glucose 152 mg/dL (70-100); HEMOLYSIS 20 (0-50); Lipase 78 U/L (23-300); Potassium 3.9 mmol/L (3.4-5.1); Prothrombin Time 11.4 SECONDS (10.1-12.7); Sodium 138 mmol/L (137-145); Total Protein 7.9 g/dL (6.3-8.2)
[2020-04-01 20:29] LABS: PTT Partial Thromboplastin Tim 34 SECONDS (26.4-36.2)
[2020-04-01 20:37] LABS: Bacteria Urine Occasional (0-1); Culture Indicated Urine Cult Not Indicated; RBC Urine 0-1/HPF (0-5/HPF); Squamous Epithelial Cell Urine 1-5 /HPF (0-5/HPF); WBC Urine 0-1/HPF (0-5/HPF)
--- NOTE | 2020-04-01 21:15 | DI.RAD.S_ITS ---
PROCEDURE: XR ACUTE ABDOMEN SERIES INDICATIONS: Abdominal pain TECHNIQUE: One view chest and two views of the abdomen were acquired. COMPARISON: None. FINDINGS: Surgical changes and devices: None. Chest: Lungs are clear. Heart size is normal. No pleural effusions. No pneumoperitoneum. Abdomen: Bowel gas pattern is normal. No suspicious calcifications. There is suggestion of mild hepatomegaly. Bones: No suspicious bony lesions. IMPRESSION: 1. Normal chest. 2. Mild hepatomegaly. 3. Nonspecific, nonobstructive bowel gas pattern. Dictated by: Alanis Bacon M.D. on 04/01/2020 at 21:41 Approved by: Alanis Bacon M.D. on 04/01/2020 at 21:42
[2020-04-01 21:54] VITALS: BP 123/81; PULSE 80; RESP 12; O2SAT 100
== END 2020-04-01 21:54 | disposition home or self-care (01) ==
PROVIDERS: Emergency Provider Emergency Medicine; PCP Family Medicine
DX: R10.9 Unspecified abdominal pain (principal)
CPT/HCPCS: 36415; 74022; 80053; 81003; 81015; 81025; 83690; 85025; 85610; 85730; 99284

== ENCOUNTER 2022-08-11 20:29 | Outpatient (CLI) | payer OTHER, MEDICAID, SELFPAY ==
--- NOTE | 2022-08-11 21:16 | PM.OBTRLD ---
Visit Information Visit Information Date of evaluation: 08/11/22 On-call OB Provider: Tania García Comments/Additional reasons for admission: Pt is a 27yo at 27w4d here with headache. She reports having an severe left sided headache intermittently for the past 3 weeks. It is not currently present. It can be associated with photophobia and phonophobia. She sometimes has slightly blurry vision with it but not consistently. No worsening edema or RUQ pain. Her is complicated by DM Type 2 on high dose of insulin. She is receiving care in [place]. She does have a hx of pre-eclampsia in her last . She denies any vaginal bleeding, LOF, contractions. She is feeling her baby move regularly. [facility] Medical History (Updated 08/12/22 @ 11:17 by Tania García MD) Chorioamnionitis Severe preeclampsia Status post vacuum-assisted vaginal delivery Social History household members: significant other Smoking Status: Never smoker Exam Narrative Exam Narrative: As per nursing normal reflexes, trace LE edema. Objective Labs 08/11/22 21:27 08/11/22 21:27 Evaluation Evaluation Baseline heart rate: 145 Variability: Moderate (11-25) monitor accelerations: Present Monitor Decelerations: Absent Category of Tracing: Reactive Diagnosis, Plan/Disposition Final Diagnosis (1) Headache: Status: Acute (2) 27 weeks gestation of : Status: Acute Plan/Disposition Plan: Pt is a 27yo at 27w4d here with headache. Not currently present. BP in good range, however due to hx of pre-eclampsia will obtain labs, which were normal other than anemia. NST reactive. Most likely migraine. Recommend Tylenol use with headache onset. Can also check BS to ensure not contributing. F/U with primary OB. Stable for d/c home. OB Disposition: home
[2022-08-11 21:46] LABS: Add Manual Diff / Slide Review NO; Basophils Absolute Auto 0 /uL (0-100); Basophils Percent Auto 0.2 % (0-2); Eosinophils Absolute Auto 100 /uL (0-450); Eosinophils Percent Auto 1.2 % (2-4); Hematocrit 29.7 % (36-46); Hemoglobin 10.2 g/dL (12.0-16.0); Lymphocytes Absolute Auto 1900 /uL (1100-4500); Lymphocytes Percent Auto 18.7 % (25-40); Mean Corpuscular HGB Conc 34.3 % (30-36); Mean Corpuscular Volume 81.5 fL (80-100); Monocytes Absolute Auto 300 /uL (0-900); Monocytes Percent Auto 3.2 % (3-14); Neutrophils Absolute Auto 7700 /uL (1500-7000); Neutrophils Percent Auto 76.7 % (50-75); Platelet Count 192 X10^3/uL (150-400); Red Blood Cell Count 3.64 X10^6/uL (4.0-5.2); Red Cell Distribution Width 14.7 % (11.6-14.8)
[2022-08-11 21:47] LABS: Alanine Aminotransferase 28 IU/L (<35); Albumin 3.3 g/dL (3.5-5.0); Alkaline Phosphatase 86 U/L (38-126); Aspartate Aminotransferase 21 IU/L (14-36); BUN Creatinine Ratio 20.9 (6-22); Bilirubin Total 0.5 mg/dL (0.2-1.3); Blood Urea Nitrogen 9 mg/dL (7-17); Calcium 8.2 mg/dL (8.4-10.2); Carbon Dioxide 20 mmol/L (22-32); Chloride 108 mmol/L (98-107); Estimated Glomerular Filt Rate > 60 mL/min (>60); Globulin 3.2 g/dL (1.7-4.1); Glucose 135 mg/dL (70-100); HEMOLYSIS < 15 (0-50); Potassium 3.8 mmol/L (3.4-5.1); Sodium 135 mmol/L (137-145); Total Protein 6.5 g/dL (6.3-8.2)
[2022-08-11 21:54] LABS: Creatinine Urine Random 46.7 mg/dL; Protein (Total) Urine Random 9 mg/dL (0-12); Protein Creatinine Ratio Urine 0.19 GRAM/24H
== END 2022-08-11 21:35 | disposition home or self-care (01) ==
LOC: OB 08-13 15:52
PROVIDERS: PCP Family Medicine; Referring Provider Family Medicine; Visit Provider Family Medicine
DX: O26.892 Other specified pregnancy related conditions, second trimester (principal); R51.9 Headache, unspecified; Z3A.27 27 weeks gestation of pregnancy
CPT/HCPCS: 36415; 59025; 80053; 82570; 84156; 85025; G0378; G0379

== ENCOUNTER → 2023-01-08 19:48 | Outpatient (CLI) | payer OTHER, MEDICAID, SELFPAY ==
--- NOTE | 2023-01-08 19:50 | DI.MRI.S_ITS ---
PROCEDURE: MR HEAD/BRAIN WO/W CON INDICATIONS: occipital CANTU, worse with exertion. TECHNIQUE: Noncontrast axial T1 spin echo, axial T2 fast spin echo, sagittal and axial FLAIR, coronal T2 fast spin echo, axial gradient echo, axial diffusion and ADC through the brain. After the administration of contrast, axial and coronal and sagittal 3D VIBE or T1 spin echo with fat saturation through the brain. COMPARISON: None. FINDINGS: Image quality: Excellent. CSF Spaces: Basal cisterns are patent. No extra-axial fluid collections. Ventricles are normal in size and shape. Brain: No midline shift. No intracranial bleeds or masses. No abnormal intracranial enhancement. The brainstem appears normal. Diffusion-weighted images demonstrate no acute ischemic insults. No chronic ischemic insults. Normal intravascular flow voids are present. Skull and face: Calvarial marrow is normal in signal. Orbits appear normal. Sinuses: Sinuses and mastoids appear clear. Incidental note is made of a right-sided jean bullosa. IMPRESSION: Unremarkable intracranial study, without hemorrhage identified. A cause of the patient's presenting history is not seen. No masses or abnormal enhancement can be seen. If there is strong clinical concern for intracranial aneurysm in this patient with this given history, please consider a dedicated MR angiogram for further evaluation. Dictated by: Jair Zaidi M.D. on 01/08/2023 at 22:22 Approved by: Jair Zaidi M.D. on 01/08/2023 at 22:24
== END ==
PROVIDERS: PCP Family Medicine; Referring Provider Family Medicine; Visit Provider Family Medicine
DX: R51.9 Headache, unspecified (principal)
CPT/HCPCS: 70553; A9579

== ENCOUNTER → 2023-02-12 15:05 | Outpatient (CLI) | payer OTHER, MEDICAID, SELFPAY ==
[2023-02-12 17:56] LABS: Urine N gonorrhoeae NOT DETECTED
[2023-02-12 18:00] LABS: Urine Chlamydia NOT DETECTED
== END ==
PROVIDERS: PCP Family Medicine; Visit Provider Physician Assistant
DX: N89.8 Other specified noninflammatory disorders of vagina (principal)
CPT/HCPCS: 81002; 87070; 87075; 87086; 87147; 87205; 87210; 87252; 87491; 87591

== ENCOUNTER 2023-04-24 20:07 | Emergency (ER) | payer OTHER, MEDICAID, SELFPAY ==
[2023-04-24 20:11] VITALS: BP 157/82; PULSE 100; RESP 20; TEMP 37.4; O2SAT 97; BMI 40.4
[2023-04-24] MEDS: ACETAMINOPHEN 325 MG TABLET 975 MG PO (20:27)
[2023-04-24 21:01] LABS: Influenza A - CEPHEID Flu A NEGATIVE (NEGATIVE); Influenza B - CEPHEID Flu B NEGATIVE (NEGATIVE); Respiratory Syncytial Virus Negative (Negative)
[2023-04-24 21:22] LABS: COVID-19 CEPHEID 4-PLEX PCR Negative (Negative)
[2023-04-24 21:41] VITALS: BP 140/89; PULSE 97; RESP 18; TEMP 36.9; O2SAT 96
--- NOTE | 2023-04-24 22:58 | ED_ITS ---
HPI - General Adult General Chief complaint: Upper Respiratory Symptoms Stated complaint: swollen/bumps on throat/SOB/dizzy/increasing T-0 Time Seen by Provider: 04/24/23 21:25 Source: patient Mode of arrival: Ambulatory History of Present Illness HPI narrative: 28-year-old woman with a history of diabetes and hypertension who presents with 24 hours of low-grade fevers as high as 99.6, increasing cough, sore throat, loss of voice and nasal stuffiness with overall body aches and feeling miserable. Nobody else at home is sick at this time. She did have an episode of emesis earlier today. She has not taken anything to help with the pain aside from DayQuil early this morning. Related Data Home Medications Medication Instructions Recorded Confirmed labetalol 300 mg tablet 300 mg PO ONCE 12/23/22 02/12/23 metformin 500 mg tablet 500 mg PO BID 12/23/22 02/12/23 Previous Rx's Medication Instructions Recorded losartan 25 mg tablet 25 mg PO DAILY blood pressure #90 12/23/22 tabs fluconazole 150 mg tablet 150 mg PO ONCE #1 tab 02/12/23 valacyclovir 1 gram tablet 1,000 mg PO BID #14 tabs 02/12/23 Allergies Allergy/AdvReac Type Severity Reaction Status Date / Time No Known Drug Allergies Allergy Verified 02/12/23 15:31 Review of Systems Review of Systems Narrative: Pertinent positive and negative findings as per HPI Patient History Medical History Eczema PTSD (post-traumatic stress disorder) (~2017) Migraines (~2016) Diabetes mellitus (~2019) Benign essential HTN (~2018) Headache (~2016) Status post vacuum-assisted vaginal delivery Chorioamnionitis Severe preeclampsia Surgical History History of section (~10/19/22) Family History Mother Diabetes mellitus Hypertension Hyperlipidemia Mental health problem Stroke Grandfather Colon cancer Diabetes mellitus History of heart disease Hyperlipidemia Hypertension Mental health problem Stroke Social History household members: significant other Smoking Status: Never smoker Smoking Status: Never smoker tobacco type: vaping Substance Use Type: does not use Exam Initial Vital Signs Initial Vital Signs: Vital Signs Temperature 99.3 F 04/24/23 20:11 Pulse Rate 100 H 04/24/23 20:11 Respiratory Rate 20 04/24/23 20:11 Blood Pressure 157/82 H 04/24/23 20:11 Pulse Oximetry 97 04/24/23 20:11 Oxygen Delivery Method Room Air 04/24/23 20:11 General: Appears to have upper respiratory infection symptoms but in no acute distress. Able to give a complete and coherent history. Well-nourished well- developed HEENT: Moist mucous membranes, normal sclera with reactive pupils, voice is somewhat hoarse Neck: Minor bilateral cervical adenopathy, supple Respiratory: Lungs are clear to auscultation, no wheezing no rales no rhonchi. Full and symmetrical air movement Cardiac: Regular rate and rhythm no murmurs no bruits Abdomen: Soft, nontender, good bowel tones, no flank pain Skin: Warm and dry, no rashes Neurologic: Grossly neurologically intact with no obvious asymmetries or abnormalities Psych: Cooperative, appropriate insight and affect Course Orders Ordered: ED Orders 04/24/23 20:15 Covid-19 + FLU A/B + RSV - PCR Stat Discontinued Medications Acetaminophen (Acetaminophen 325 Mg Tablet) 975 mg PO NOW ONE Stop: 04/24/23 20:18 Last Admin: 04/24/23 20:27 Dose: 975 mg Documented By: HIMA Vital Signs Vital signs: Vital Signs - 8 hr 04/24/23 20:11 04/24/23 21:41 Temperature 99.3 F 98.4 F Pulse Rate 100 H 97 H Respiratory Rate 20 18 Blood Pressure 157/82 H 140/89 Pulse Oximetry 97 96 Oxygen Delivery Method Room Air Room Air Medical Decision Making Lab Data Labs: Lab Results 04/24/23 Range/Units 20:15 SARS-CoV-2 (PCR) Negative (Negative) Influenza A (RT-PCR) Flu a negative (NEGATIVE) Influenza B (RT-PCR) Flu b negative (NEGATIVE) RSV (PCR) Negative (Negative) MDM Narrative Medical decision making narrative: CC: Upper respiratory complaints Complicating co-morbidities: Diabetes, hypertension Data collected from: patient, Differential considered: Strep throat, peritonsillar abscess, viral syndrome, bacterial pneumonia Exam documented above, pertinent findings include: Cough, nonproductive, nasal stuffiness, hoarse voice, anterior cervical adenopathy, no significant posterior pharyngeal erythema or exudate. Lungs are completely clear Lab Test results independently reviewed as above. Pertinent findings: COVID test is negative Discussion: 28-year-old woman with viral upper respiratory symptoms without signs of secondary bacterial infection. Reviewed anticipated course of recovery. Medications to use to help for symptomatic relief and she is safe for discharge home MIPS: Appropriate Treatment for Patients with URI [x] The patient was diagnosed with upper respiratory infection and was not prescribed or dispensed an antibiotic. [SATISFIES MIPS PERFORMANCE] Discharge Plan Departure Patient Disposition: Home Clinical Impression: Upper respiratory infection Instructions: DI for Viral Upper Respiratory Infection -- Adult Activity Restrictions/Additional Instructions: Thank you for coming in today. I am sorry that you are feeling so miserable. With your clinical exam, all of your symptoms suggest that you have viral upper respiratory infection. There is no indication of strep throat, bacterial pneumonia or other complications that would require antibiotics Keeping well hydrated definitely helps. Please expect her symptoms to continue for 5-7 days. [id number] medications that can be helpful for symptoms include: Ibuprofen and Tylenol for fevers, body aches and sore throat Robitussin DM or the generic equivalent to help with the cough Sudafed to help with the nasal stuffiness If you find that you are getting worse or develop any new symptoms, please feel free to return to the emergency department for further evaluation. Prescriptions: No Action valacyclovir 1 gram tablet 1,000 mg PO BID Qty: 14 0RF fluconazole 150 mg tablet 150 mg PO ONCE Qty: 1 0RF Rx Instructions: as a single dose metformin 500 mg tablet 500 mg PO BID labetalol 300 mg tablet 300 mg PO ONCE losartan 25 mg tablet 25 mg PO DAILY Qty: 90 3RF Referrals: Hebert Min DO [Primary Care Provider] - Stand Alone Forms: Patient Portal/API
[2023-04-24 23:16] VITALS: BP 146/87; PULSE 98; RESP 18; O2SAT 98
== END 2023-04-24 23:21 | disposition home or self-care (01) ==
PROVIDERS: Emergency Provider Emergency Medicine; PCP Family Medicine
DX: J06.9 Acute upper respiratory infection, unspecified (principal)
CPT/HCPCS: 0241U; 99283

== ENCOUNTER 2024-02-13 21:36 | Emergency (ER) | payer OTHER, MEDICAID, SELFPAY ==
[2024-02-13 21:48] VITALS: BP 169/64; PULSE 81; RESP 14; TEMP 37.1; O2SAT 99; BMI 39.6
--- NOTE | 2024-02-13 21:54 | ED_ITS ---
HPI - Female Genitourinary General Chief complaint: Urogenital-Female Stated complaint: vaginal itching, pain, open sores Time Seen by Provider: 02/13/24 21:39 Source: patient Mode of arrival: Family Vehicle History of Present Illness HPI Narrative: 28-year-old female presents for vaginal irritation and itching for the last 3 days. States it her partner also noticed some abnormal lesions on her vagina and she wants them evaluated. Previous hx of gestational diabetes, denies diabetes currently. Related Data Home Medications Medication Instructions Recorded Confirmed labetalol 300 mg tablet 300 mg PO ONCE 12/23/22 02/12/23 metformin 500 mg tablet 500 mg PO BID 12/23/22 02/12/23 Previous Rx's Medication Instructions Recorded losartan 25 mg tablet 25 mg PO DAILY blood pressure #90 12/23/22 tabs fluconazole 150 mg tablet 150 mg PO ONCE #1 tab 02/12/23 valacyclovir 1 gram tablet 1,000 mg PO BID #14 tabs 02/12/23 valacyclovir 1 gram tablet 1,000 mg PO BID #14 tabs 02/13/24 metformin 500 mg tablet 500 mg PO BID #60 tabs 02/14/24 Allergies Allergy/AdvReac Type Severity Reaction Status Date / Time No Known Drug Allergies Allergy Verified 02/12/23 15:31 Patient History Medical History Eczema PTSD (post-traumatic stress disorder) (~2017) Migraines (~2015) Diabetes mellitus (~2018) Benign essential HTN (~2018) Headache (~2016) Status post vacuum-assisted vaginal delivery Chorioamnionitis Severe preeclampsia Surgical History History of section (~10/19/22) Family History Mother Diabetes mellitus Hypertension Hyperlipidemia Mental health problem Stroke Grandfather Colon cancer Diabetes mellitus History of heart disease Hyperlipidemia Hypertension Mental health problem Stroke tobacco type: vaping alcohol intake frequency: 0-2 drinks per day Last Alcoholic Drink: does not use Substance Use Type: does not use Exam Initial Vital Signs Initial Vital Signs: Vital Signs Temperature 98.7 F 02/13/24 21:48 Pulse Rate 81 02/13/24 21:48 Respiratory Rate 14 02/13/24 21:48 Blood Pressure 169/64 H 02/13/24 21:48 Pulse Oximetry 99 02/13/24 21:48 Oxygen Delivery Method Room Air 02/13/24 21:48 Const: Awake, alert, no acute distress, nontoxic appearing : external genitalia normal. Herpetic lesion on clitoris Skin: Warm, Dry, intact, herpetic lesion near clitoris Neuro: AO x3, CN II-XII grossly intact, moves all extremities Course Orders Ordered: ED Orders 02/13/24 22:01 Chlamydia Gonorrhea PCR -URINE Stat Discontinued Medications Ondansetron HCl (Ondansetron 4 Mg/2 Ml Inj) 4 mg IV NOW PRN PRN Reason: Nausea And Vomiting Ondansetron HCl (Ondansetron 4 Mg Odt) 4 mg SL NOW PRN PRN Reason: Nausea And Vomiting Vital Signs Vital signs: Vital Signs - 8 hr 02/13/24 21:48 02/14/24 00:09 Temperature 98.7 F Pulse Rate 81 72 Respiratory Rate 14 16 Blood Pressure 169/64 H 168/96 H Pulse Oximetry 99 98 Oxygen Delivery Method Room Air Room Air MDM - Female Genitourinary Lab Data Labs: Lab Results 02/13/24 Range/Units 22:01 Ur Chlamydia DNA (PCR) Not detected N gonorrhoeae DNA (PCR) Not detected Point of Care Testing Test Results Negative Glucose POC 375 Urine Dip Bedside Urine Glucose 1000 mg/dl Bedside Urine Bilirubin - Negative Bedside Urine Ketone - Negative Urine Specific [place] 1.015 Bedside Urine Occult Blood - Negative Bedside Urine pH 6.5 Bedside Urine Protein - Negative Bedside Urine Urobilinogen - Negative Bedside Urine Nitrite - Negative Bedside Urine Leukocytes - Negative Esterase MDM Narrative Medical decision making narrative: Well-appearing patient with vaginal irritation and discomfort. Appears to be herpetic lesions on genitalia. Patient apparently seen for this 1 year previously with viral culture positive for herpes. Urinalysis negative for signs of infection, glucose present in urine. Point of care glucose 375, confirming diabetes. Patient informed of lab findings as well as diagnosis of diabetes. Patient states she previously was on metformin which she tolerated well. Plan to restart metformin. There was no proteinuria on urinalysis and patient has no history of kidney disease. Valacyclovir sent to pharmacy of choice as well as metformin. Patient instructed to follow up with her primary care doctor for her diabetes. This was verbally discussed with the patient and not included in the discharge paperwork. Discharge Plan Departure Patient Disposition: Home Clinical Impression: Vaginal pain Instructions: DI for Genital Herpes Activity Restrictions/Additional Instructions: The lesion on your genitals is most consistent with herpes virus. It appears as though you were treated for something similar 1 year ago, and the viral culture then was positive for herpes simplex virus type 1. The antivirals should help improve your pain. I recommend following up with your primary care doctor as well as OBGYN if you get recurrent lesions. Your gonorrhea and chlamydia swabs were negative today. I also noted glucose in your urine today. Follow up with your primary care doctor for further testing to see if you have diabetes. Avoid intercourse while you have active lesions. Prescriptions: New valacyclovir 1 gram tablet 1,000 mg PO BID Qty: 14 0RF metformin 500 mg tablet 500 mg PO BID Qty: 60 0RF No Action valacyclovir 1 gram tablet 1,000 mg PO BID Qty: 14 0RF fluconazole 150 mg tablet 150 mg PO ONCE Qty: 1 0RF Rx Instructions: as a single dose metformin 500 mg tablet 500 mg PO BID labetalol 300 mg tablet 300 mg PO ONCE losartan 25 mg tablet 25 mg PO DAILY Qty: 90 3RF Referrals: Hebert Min DO [Primary Care Provider] - Stand Alone Forms: Patient Portal/API
[2024-02-13 23:40] LABS: Urine N gonorrhoeae NOT DETECTED
[2024-02-13 23:44] LABS: Urine Chlamydia NOT DETECTED
[2024-02-14 00:09] VITALS: BP 168/96; PULSE 72; RESP 16; O2SAT 98
== END 2024-02-14 00:10 | disposition home or self-care (01) ==
PROVIDERS: Emergency Provider Emergency Medicine; PCP Family Medicine
DX: R10.2 Pelvic and perineal pain (principal); N89.8 Other specified noninflammatory disorders of vagina; E11.9 Type 2 diabetes mellitus without complications
CPT/HCPCS: 81003; 81025; 82962; 87491; 87591; 99282; 99283

== ENCOUNTER → 2024-02-23 10:44 | Outpatient (CLI) | payer OTHER, MEDICAID, SELFPAY ==
[2024-02-23 13:52] LABS: Alanine Aminotransferase 97 IU/L (<35); Albumin 4.1 g/dL (3.5-5.0); Albumin Globulin Ratio 1.5 (1.0-2.8); Alkaline Phosphatase 118 U/L (38-126); Aspartate Aminotransferase 51 IU/L (14-36); BUN Creatinine Ratio 27.3 (6-22); Bilirubin Total 1.2 mg/dL (0.2-1.3); Blood Urea Nitrogen 12 mg/dL (7-17); Calcium 9.3 mg/dL (8.4-10.2); Carbon Dioxide 25 mmol/L (22-32); Chloride 101 mmol/L (98-107); Cholesterol 154 mg/dL (140-199); Estimated Glomerular Filt Rate > 60 mL/min (>60); Globulin 2.7 g/dL (1.7-4.1); Glucose 307 mg/dL (70-100); HDL Cholesterol 30 mg/dL (40-60); HEMOLYSIS < 15 (0-50); LDL Cholesterol Calculated 83 mg/dL (<100); Potassium 4.2 mmol/L (3.4-5.1); Sodium 133 mmol/L (137-145); Total Protein 6.8 g/dL (6.3-8.2); Triglycerides 205 mg/dL (35-150)
[2024-02-23 17:47] LABS: Hemoglobin A1C% w Est Avg Glu 9.1 % (4.0-6.0)
[2024-02-23 18:59] LABS: Creatinine Urine Random 162.02 mg/dL
== END ==
LOC: LAB 10:45
PROVIDERS: PCP Family Medicine; Referring Provider Family Medicine; Visit Provider Family Medicine
DX: E11.9 Type 2 diabetes mellitus without complications (principal); I10 Essential (primary) hypertension
CPT/HCPCS: 36415; 80053; 80061; 82043; 82570; 83036

== ENCOUNTER → 2024-05-30 11:07 | Outpatient (CLI) | payer OTHER, SELFPAY ==
--- NOTE | 2024-05-30 11:13 | DIAB.MNT ---
Initial Diabetes Medical Nutrition Therapy Assessment Name: Lizbet Chakraborty Date: 05/30/24 Time: 1110a-12p Dx: Type II Diabetes Provider: Mechelle Napoles Learning Style: doing/seeing Maria Victoria presents for initial DM visit. PMH of Dm since 2019. FH of DM with mother and maternal grandparents and aunts. Reports mother and grandmother with insulin therapy. DM with insulin therapy during in [id number]. Recent termination of , reports significant elevations in the 300s during that time. No SMBG at this time. Has leftover CGM. Reports her main concern today is about nutrition, though diet recall proves pretty well balanced with exception of sugar beverage at dinner, which she is not attached to keeping. Skips breakfast, wakes at 5a, r/t time management. Reports h/o keto diet, which she reports did help with weight but minimally with BG Reports discussion with PCP about potential for GLP1. Has questions regarding GLP1 use. Diet Recall: 11a: meat (shrimp or chx), veggies and potato 230p: nothing or 1c fruit or 10 small crackers 630-7p: 1c rice or pasta, veggie and pro, sugar beverage x 8-12oz water: 64oz x3 ETOH socially infrequent, use to be daily in [id number] Anthropometrics: Ht: 61 Wt: 214.5# Weight history: Physical Activity: Gym 3x per week for 30-90min Self-Monitoring Blood Glucose: Checks BG inconsistently. Meters reading error messages. Stopped checking recently. Was checking FBG pre recent , 100-130mg/dl. Recent terminated , she noticed elevated BG higher with hormones-- over 300mg/dl. Diabetes Medications: 1000mg Metformin BID Pertinent Labs: HgA1c: 9.1% 02/2024 Past Medical History: (Last Updated 04/05/24 @ 11:55 by Hebert Min DO) Benign essential HTN (~2018) Chorioamnionitis Diabetes mellitus (~2019) Eczema Headache (~2015) HSV-2 (herpes simplex virus 2) infection Microalbuminuria due to type 2 diabetes mellitus Migraines (~2015) PTSD (post-traumatic stress disorder) (~2017) Severe preeclampsia Status post vacuum-assisted vaginal delivery Nutrition Rx: Carbohydrates: Meal:30-45g Snack:15-30g Nutrition Diagnosis: - Excessive CHO intake r/t sugar beverage intake aeb diet recall - Excessive fluid intake r/t predicted elevated BG increasing thirst aeb diet recall and pt report - Self monitoring deficit r/t error messaging with meter aeb pt report Intervention: This participant was very receptive. Provided appropriate educational handouts. Discussed the following topics: Completed intake assessment. Discussed barriers to care. Pathophysiology of T2DM Importance of self-monitoring, meter or CGM if not , troubleshooting meter issues Plate Method Recommended servings for carbohydrates at meals and snacks s/s hyperglycemia impact of on BG Medications: insulin v GLP1, SE, pro/cons, action Created SMART goals for patient self-care and success. Goals: Bring meters next visit- new Wear Dexcom if not - new Avoid sugar beverages- new Measure carbs at dinner for 1c or less- new Follow-up: DANISH MYLES follow-up in 2-3 weeks Tami Soto RDN, SHAR Certified Diabetes Care and Range Scientist P: [phone] Thank you for this referral
== END ==
PROVIDERS: PCP Family Medicine; Referring Provider Family Medicine
DX: E11.9 Type 2 diabetes mellitus without complications (principal); Z71.3 Dietary counseling and surveillance; Z83.3 Family history of diabetes mellitus; Z79.84 Long term (current) use of oral hypoglycemic drugs; I10 Essential (primary) hypertension
CPT/HCPCS: 97802

== ENCOUNTER → 2024-12-06 15:16 | Outpatient (CLI) | payer OTHER, SELFPAY | PROVIDERS: PCP Family Medicine; Visit Provider Chiropractor | DX: N94.9 Unspecified condition associated with female genital organs and menstrual cycle (principal); N89.8 Other specified noninflammatory disorders of vagina | CPT/HCPCS: 87210 ==

== ENCOUNTER → 2025-05-08 13:31 | Outpatient (CLI) | payer OTHER, SELFPAY ==
[2025-05-08 14:21] LABS: Influenza A - CEPHEID Flu A NEGATIVE (NEGATIVE); Influenza B - CEPHEID Flu B NEGATIVE (NEGATIVE)
[2025-05-08 14:22] LABS: COVID-19 CEPHEID 4-PLEX PCR Negative (Negative)
== END ==
PROVIDERS: PCP Family Medicine; Visit Provider Chiropractor
DX: R05.9 Cough, unspecified (principal); H93.8X3 Other specified disorders of ear, bilateral
CPT/HCPCS: 87637